=== PATIENT | female | born 1930 | race Caucasian/White ===

== ENCOUNTER 2016-07-29 13:00 | Emergency (ER) | payer MEDICARE, BC ==
--- NOTE | 2016-07-29 13:13 | ERNOTE ---
Dyspnea - Date Date of Service: 07/29/16 - General Time Seen by Provider: 07/29/16 13:11 Source: patient, family - Immun/Allergies/Home Medications Immunizations: IMMUNIZATION HX Immunizations Up to Date Yes History of Influenza Vaccine Yes Hx Pneumococcal Vaccination Yes Allergies/Adverse Reactions: Allergies atorvastatin calcium [From Lipitor] Allergy (Verified 07/29/16 13:11) codeine [Codeine] Allergy (Verified 07/29/16 13:11) estrogens, conjugated [From Premarin] Allergy (Verified 07/29/16 13:11) metformin Allergy (Verified 07/29/16 13:11) nitrofurantoin macrocrystalline [From Macrodantin] Allergy (Verified 07/29/16 13 :11) Penicillins Allergy (Verified 07/29/16 13:11) sulfamethoxazole [From Bactrim] Allergy (Verified 07/29/16 13:11) trimethoprim [From Bactrim] Allergy (Verified 07/29/16 13:11) simvastatin [From Zocor] Adverse Reaction (Verified 07/29/16 13:11) Home Medications: HOME MEDICATIONS ALPRAZolam [Xanax] 0.25 mg PO BID PRN 12/24/15 [Last Taken Unknown] Acetaminophen [Tylenol] 1,000 mg PO Q6H PRN 12/24/15 [Last Taken Unknown] Albuterol Sulfate/Ipratropium [Duoneb 2.5-0.5MG/3ML Soln] 3 ml IH QID PRN [Last Taken Unknown] Cholecalciferol (Vitamin D3) [Vitamin D3] 2,000 unit PO DAILY 12/24/15 [Last Taken Unknown] Clopidogrel Bisulfate [Plavix] 75 mg PO DAILY 12/24/15 [Last Taken Unknown] Escitalopram Oxalate [Lexapro] 10 mg PO DAILY 12/24/15 [Last Taken Unknown] Gabapentin 300 mg PO DAILY 12/24/15 [Last Taken Unknown] Gabapentin [Neurontin] 600 mg PO HS 12/24/15 [Last Taken Unknown] Insulin Glargine,Hum.rec.anlog [Lantus] 28 unit SQ BID 12/24/15 [Last Taken Unknown] Losartan Potassium [Cozaar] 50 mg PO HS 12/24/15 [Last Taken Unknown] Memantine HCl 10 mg PO BID 12/24/15 [Last Taken Unknown] Nitroglycerin [Nitrostat] 0.4 mg SL Q5MIN PRN 12/24/15 [Last Taken Unknown] Pantoprazole Sodium [Protonix] 40 mg PO DAILY 12/24/15 [Last Taken Unknown] Pravastatin Sodium [Pravachol] 40 mg PO DAILY 12/24/15 [Last Taken Unknown] Albuterol Sulfate [Proair Hfa] 2 puff IH QID PRN 07/29/16 [Last Taken Unknown] Cephalexin Monohydrate [Keflex] 500 mg PO Q8H #30 capsule 07/29/16 [Last Taken Unknown] Insulin Aspart [Novolog] 8 units SC DAILY 07/29/16 [Last Taken Unknown] Insulin Aspart [Novolog] 10 units SC BID 07/29/16 [Last Taken Unknown] - History of Present Illness Narrative: C/O OF INCREASED COUGHING FOR A COUPLE OF DAYS. SISTER WONDERS IF SHE HAS UTI BECAUSE SHE HAD ONE ONCE BEFORE THOUGH PT HAS UTI SX'S. SHE WAS REPORTED BY FAMILY TO HAVE A FEVER OF 99 AT HOME THIS MORNING. SHE SAYS SHE HAS HX OF PNEUMONIAS AND TRIED A DOSE OF HER INHALER EARLIER WITH NO HELP. SHE IS NOT ON HOME O2 , HAVE A HOME NEBULIZER OR USE CPAP AT NIGHT. SHE DENIES COPD, ASTHMA, OR SMOKING HISTORY OR HX OF EXPOSURE THOUGH IT LOOKS LIKE SHE HAS BEEN TREATED COPD IN THE PAST. SHE HAS PHX OF CA BUT DENIES ANY CHEST PAIN AND HAS A PACE MAKER BUT SHE AND FAMILY DO NOT KNOW WHY. SHE AND HER LIVE IN [facility] BUT HE IS NOT HERE TODAY. Review of Systems - Review of Systems Constitutional: Present: See HPI EYE: Present: no symptoms reported ENT: Present: no symptoms reported Respiratory: Present: cough Cardiology: Present: no symptoms reported Gastrointestinal/Abdominal: Present: no symptoms reported Genitourinary: Present: no symptoms reported Musculoskeletal: Present: no symptoms reported Skin: Present: no symptoms reported Neurological: Present: no symptoms reported Endocrine: Present: no symptoms reported Hematologic/Lymphatic: Present: no symptoms reported Psych: Present: no symptoms reported - Patient's Past Medical History Patient History - Medical: Anxiety, Diabetes Type 2 Patient History - Cardiac/Respiratory: CHF, CVA/Stroke, Hypertension, Hyperlipidemia, Myocardial Infarction Patient History - Cancer: No Hx of Cancer Patient History - Surgical Procedures: Appendectomy, Cardiac stent, Hysterectomy , Other Patient History - Other: None - Family History Mother Family History - Medical: Family History - Cardiac/Respiratory: CVA/Stroke Father Family History - Medical: , Diabetes Type 2 Family History - Cardiac/Respiratory: Hypertension, Hyperlipidemia, Myocardial Infarction - Social History Living Situations: home Abuse History: No History of abuse Psych History: Hx of Anxiety Alcohol Use: none Drug Use: benzodiazepine - Immunizations Immunizations Up to Date: Yes Hx Pneumococcal Vaccination: Yes History of Influenza Vaccine: Yes Physical Exam - Physical Exam General Appearance: Present: wd/wn, alert, mild distress - ANXIOUS APPEARING. WITH STABLE VSS ON ROOM AIR. Eye Exam: Normal inspection: bilateral Ears, Nose, Throat: Present: normal ENT inspection Neck: Present: normal inspection Respiratory: Present: no respiratory distress, no accessory muscle use, chest nontender, wheezing - MILD EXP . WHEEZES. Cardiovascular/Chest: Present: regular rate, rhythm, no murmur, normal peripheral pulses Gastrointestinal/Abdominal: Present: normal bowel sounds, nontender, soft, no organomegaly Back Exam: Present: normal inspection Extremity Exam: Present: normal inspection, no edema Neurological Exam: Present: alert, oriented Skin Exam: Present: normal color ED Progress - Results and Orders Patient's Lab Results:: I have reviewed the patient's lab results. Results and Orders: WBC = 11.7, ABG WNL WIT PAO2 = 63 ON R.A., LYTES =WNL, CREAT 1.25 WITH GLUC 266. LACTIC ACID = 3.0, D-DIMER = 1.6, WITH NL TROP AND BNP. URINE = 3 = BACT , +NITRATES, SPILLING GLUC, 10-25 RBC'S, CULTURE PEND. - Vital Signs Patient's Vital Signs:: I have reviewed the patient's vital signs. Vital Signs: Vital Signs 07/29/16 13:07 Temperature 36.9 C Pulse Rate 78 Respiratory 14 Rate Blood Pressure 164/88 O2 Sat by Pulse 90 Oximetry - EKG EKG: other - PACER RYTHM, 76 HR, RBBB WITH LAD. - X-Ray X-Ray #1 X-Ray: chest - CMG. RIGHT HILAR NODULAR DENSITY = NEW, D/W DR. LUGO Interpretation: Discd w/ radiologist - CT/Ultrasound CT/Ultrasound Narrative: Patient Patient Name:DEYVI LANG Date: 1930 Sex: F Order Number: [id number] Unique Exam ID: [id number] Exam Requested: ANGIOCHES - CTA Chest * Date Scheduled: Study Priority: Requesting Service: Requesting Physician: Say Michelle Reason for Exam: SOB , ? PNEUMONIA VS PE Radiological Report : Exam Date: 07/29/2016 14:10 Ordering Physician: Say Michelle HISTORY: Shortness of breath, weakness, fever. Abnormal chest x-ray with a nodular opacity overlying the right hilum. TECHNIQUE: Multiple contrast-enhanced axial CT images of the chest were obtained, according to pulmonary angiography protocol. Coronal reconstructed maximal intensity projection images were also submitted for interpretation. COMPARISONS: 06/04/2015. FINDINGS: CTA Chest *: Opacification of the pulmonary arterial branches are adequate. No filling defects are noted to suggest pulmonary embolus. Opacification of the thoracic aorta is suboptimal for angiographic evaluation but no definite focal finding is seen.. Multiple artifacts related to cardiac motion and streak artifact from contrast in the adjacent superior vena cava noted. 4 cm dilation of the ascending thoracic segment, stable. Aortic valvular calcifications also present. Mildly enlarged right hilar lymph nodes are noted, which are new. There is no definite signs of large bulky mediastinal mass. No significant pericardial effusion noted. There is mild to moderate cardiac enlargement. Extensive coronary arterial vascular calcifications noted. Mitral valvular calcifications also present. There is a new 3.5 x 3.5 cm nodular pulmonary opacity in the superior segment of the right lower lobe, seen best on series 6 image 84. There is associated peribronchial subcentimeter nodular opacities and thickening of the lung interstitium around the bronchovascular bundle. The trachea is grossly patent. No pneumothorax or pleural effusions present. Bones are grossly intact. Degenerative changes of the spine noted. Decreased mineralization of bone suggestive of underlying osteopenia or osteoporosis. Anterior chest wall is grossly unremarkable. Axillary regions are also grossly normal. Visualized portions of the abdomen grossly unremarkable. IMPRESSION: 1. No CT evidence for acute pulmonary thromboembolism. 2. Suboptimal opacification of the thoracic aorta for angiographic evaluation without obvious acute findings. 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 3. New 3.5 x 3.5 cm pulmonary opacity in the superior segment of the right lower lobe, with associated right hilar lymph node enlargement, and nodular thickening of the interstitium around the bronchovascular bundle. Differential diagnosis includes infection versus malignancy. Clinical correlation is advised. Short-term follow-up chest CT in 1-[address] evaluation should also be considered. 4. Cardiomegaly. Coronary arterial vascular calcifications noted. Aortic and mitral valvular calcifications. 5. Additional comments and details are as above. Electronically signed by Mali Lugo M.D.. Approved by: Approval Date: 07-29-2016 Approval Time: 03:02 PM THIS REPORT WAS RECEIVED FROM THE [employer] SYSTEM - Progress/Reassessment Chief Complaint: Dyspnea Plan - Plan Plan: D/W DR KOHLI, WILL D/C ON CEFAZOLIN WITH CULTURE PENDING ON URINE. I d/w pt and family about doing f/u of the right hilar opacity noted on cxr and cta chest. Departure Clinical Impression: UTI (urinary tract infection), bacterial - Departure Disposition: Home Follow Up Needed Condition: Fair Instructions: Urinary Tract Infection, Adult, [id number], Urine Culture and Sensitivity Testing Referrals: Shari Kohli MD [Primary Care Provider] - Prescriptions: Cephalexin Monohydrate [Keflex] 500 mg PO Q8H #30 capsule
[2016-07-29 13:28] LABS: Hematocrit 45.2 % (37.0-47.0); Mean Cell Volume 86.4 fl (78-100); Mean Corpuscular Hemoglobin 28.7 pg (27-31); Mean Corpuscular Hgb Conc 33.2 g/dl (32-36); Mean Platelet Volume 10.7 fl (6.0-9.5); Neutrophil # 7.6 K/mm3 (1.3-6.0); Neutrophil % 64.7 % (42-75.0); Platelet Count 312 K/mm3 (150-450); Red Blood Count 5.23 M/mm3 (4.2-5.4); Red Cell Distribution Width 15.5 % (11.5-14.0); White Blood Count 11.7 K/mm3 (4.0-10.5)
--- OUTSIDE RECORDS SUMMARY | 2016-07-29 13:40 | XMS REPORT | Continuity of Care Document ---
:1930 Author Organization [facility] [place] [address] Care Team Providers Name Role Phone Unavailable Primary Care Provider Unavailable Source Comments This disclosure is being made pursuant to the [employer] program and maynot contain all information available regarding this patient.[facility] Active Allergies and Adverse Reactions Not on File Current Medications Be aware that medications may not be up to date as of this document. Alwaysverify current medications with the patient. Not on file Active Problems Not on file Social History Tobacco Use Types Packs/Day Years Used Date Never Assessed Plan of Care Health Maintenance Due Date Last Done Comments Retired-Pertussis Vaccine Adult 1950 Retired-Tetanus Vaccine Adult 1949 Well Adult Visit 1981 Zoster Vaccine 60+ 1991 Bone Density 01/11/1996 Retired-Pneumococcal 23 Vaccine-65+ yo 01/11/1996 Retired-INFLUENZA VACCINE 11/19/2014 Results from Last 3 Months Not on file
--- OUTSIDE RECORDS SUMMARY | 2016-07-29 13:41 | XMS REPORT | Continuity of Care Document ---
:1930 Author Organization [facility] ([facility]) Address [address] [place] [address] Phone [phone] Care Team Providers Name Role Phone MavericktelmaShari Primary Care Provider [phone] Source Comments This disclosure is being made pursuant to the Care Everywhere program, applicable federal and state laws, and may not contain all informaitonavailable regarding this patient.[facility] ([facility]) Active Allergies and Adverse Reactions Allergen Noted Date Severity Reactions Comments Codeine 11/12/2009 OTHER Confusion Conjugated Estrogens 11/12/2009 Rash Cotrim Double-Strength 10/09/2010 Unknown Nitrofuran Analogues Nausea & Vomiting Penicillins Urticaria (Hives) Current Medications Prescription Sig. Disp. Refills Start Date End Date Status insulin glargine inject 60 Units Active (LANTUS) 100 unit/mL subcutaneously every injection evening with dinner. insulin lispro inject 10 Units Active (HUMALOG) 100 subcutaneously 3 unit/mL injection times daily before meals. Sliding scale gabapentin 300 mg Take 300 mg by mouth Active tablet 3 times daily. 300mg in the am, 600mg at bedtime escitalopram oxalate take 1 tablet by 02/20/2013 Active (LEXAPRO) 10 mg oral route every tablet day nitroglycerin 0.[address] 1 tablet 12/06/2012 Active SL tablet (0.4MG) by sublingual route at the 1st sign of attack; may repeat every 5 min until relief; if pain persists after 3 tablets in 15 min, prompt medical attention is recommended pantoprazole 40 mg Take 40 mg by mouth Active EC tablet daily pravastatin 20 mg Take 40 mg by mouth 04/04/2015 Active tablet every evening. clopidogrel (PLAVIX) Take 1 tablet (75 mg 90 tablet 3 05/27/2015 Active 75 mg tablet total) by mouth daily. losartan 50 mg Take 50 mg by mouth Active tablet daily. HYDROcodone-acetamin Take 1 tablet by Active ophen 5-325 mg per mouth every 4 hours tablet as needed. IPRATROPIUM BROMIDE Active INH oxymetazoline 0.05% Use 2 Sprays into Active nasal spray both nostrils 2 times daily. albuterol 90 Use 2 Puffs by Active mcg/Actuation inhalation every 6 inhaler hours as needed. CALCIUM Active CARBONATE/VITAMIN D3 (VITAMIN D-3 PO) ALPRAZolam 0.25 mg Take 0.25 mg by Active tablet mouth at bedtime as needed. Active Problems Problem Noted Date CVA (cerebral vascular accident), 05/201510/07/2015 Carotid artery disease 10/12/2014 Overview: Formatting of this note may be different from the original. VASCULAR: Carotid Duplex (The Doppler flow velocities within the right internal carotid artery are elevated, consistent with a greater than 70% stenosis The Doppler flow velocities within the left internal carotid artery are within normal limits ) - 01/05/2011 Arch & 4 Vessel (40% Ostial Right Internal Carotid) - 01/26/2011 Carotid Duplex (Vertebral: Bilateral Antegrade Flow, VIOLETTE 184/40 (3.2) LICA 69/ 20 (.7)) - 08/17/2011 Carotid CTA (VIOLETTE read as 71%.) - 02/18/2012 Duplex (Vertebral: Bilateral Antegrade Flow, Right ICA/CCA ratio 1.0 Left ICA/ CCA ratio 0.8) - 12/22/2012 Carotid Duplex (The right common carotid artery is tortuous The Doppler flow velocities within the right internal carotid artery are elevated, consistent with a 50-69% stenosis. The Doppler flow velocities within the left internal carotid artery are within normal limits, less than 50% stenosis. ) - 08/22/2013 Aortic stenosis 10/12/2014 Overview: Formatting of this note may be different from the original. ECHO/MUGA: Echo (Normal EF, Aortic Sclerosis) - 05/22/2009 Echo (There is mild to moderate concentric left ventricular hypertrophy. Left ventricular systolic function is normal. There is mild mitral regurgitation. The peak aortic valve gradient is 23 mmHg. Mild valvular aortic stenosis. Mild aortic regurgitation. ) - 01/05/2011 EchoLV Ejection Fraction=61% (based on Biplane Method of Discs). Mild left ventricular hypertrophy. Trace mitral regurgitation Aortic valve peak instantaneous gradient=33 mmHg. Aortic valve mean gradient=22 mmHg. A normal IVC diameter which collapses greater than 50% would support an normal RA pressure of 3 mmHg (range 0-5mmHg). 05/02/2015 Sinus node dysfunction 08/22/2013 Cardiac pacemaker in situ, [employer] 04/21/2011 Patent foramen ovale 10/14/2010 GERD (gastroesophageal reflux disease) 10/14/2010 Unspecified urinary incontinence 10/14/2010 Memory loss 11/12/2009 Diabetes mellitus 11/12/2009 CAD (coronary artery disease) 11/12/2009 Overview: Formatting of this note may be different from the original. CAD: 1 Stent: LAD - 03/1997 TIA (transient ischemic attack) 11/12/2009 HLD (hyperlipidemia) 11/12/2009 Myocardial infarction, old HTN (hypertension) Social History Tobacco Use Types Packs/Day Years Used Date Never Smoker Smokeless Tobacco: Never Used Alcohol Use Drinks/Week oz/Week Comments No Last Filed Vital Signs Vital Sign Reading Time Taken Blood Pressure 118/72 10/07/2015 11:13 AM CDT Pulse 86 10/07/2015 11:13 AM CDT Temperature 36.9 C (98.4 F) 08/11/2011 1:00 PM CDT Respiratory Rate 20 08/11/2011 1:00 PM CDT Height 1.575 m (5' 2") 10/07/2015 11:13 AM CDT Weight 80.196 kg (176 lb 12.8 oz) 10/07/2015 11:13 AM CDT Body Mass Index 32.33 10/07/2015 11:13 AM CDT Oxygen Saturation 96% 08/11/2011 1:00 PM CDT Plan of Care Date Type Specialty Providers Description 10/05/2016 Appointment Heart and Vascular Tacos Angel MD Chief Comp: Patient [address] [address] Visit [phone] (Fax) Health Maintenance Due Date Last Done Comments Hepatitis B Vaccine (1 of 3 - Primary Series) 1930 Tdap Vaccine 1941 DIABETIC: Cholesterol 1948 Diabetic: Hdl 1948 DIABETIC: Hemoglobin A1C 1948 Diabetic: Ldl 1948 DIABETIC: Microalbumin 1948 DIABETIC: Triglycerides 1948 Td Vaccine 1948 Colonoscopy 01/09/1981 Zoster Vaccine 1991 Osteoporosis Screening (DXA Bone Density) 01/11/1996 Pneumococcal Vaccine (1 of 2 - PCV13) 01/11/1996 DIABETIC: Foot Exam 09/01/2010 DIABETIC: Retinal Eye Exam 09/01/2010 Influenza Vaccine: Seasonal (#1) 10/20/2015 Results from Last 3 Months Not on file
[2016-07-29 13:42] LABS: Total Cells Counted 100
[2016-07-29 13:46] LABS: Troponin I Less than 0.017 ng/ml (0.00-0.10)
[2016-07-29] MEDS ORDERED: ALBUTEROL SULFATE/IPRATROPIUM 3 ML NEBU IH ONE (13:47)
[2016-07-29 13:48] LABS: ALT 16 U/L (19-67); AST 13 U/L (0-48); Albumin * 2.9 gm/dl (3.4-5.0); Alkaline Phosphatase * 104 U/L (50-170); Anion Gap 13.8 mmol/L (6.8-13.8); BNP * 532 pg/mL (5-550); Bilirubin, Total 0.6 mg/dL (0.0-1.1); Blood Urea Nitrogen 10 mg/dL (3-23); Ca. Corrected For Albumin 9.4 mg/dL (8.4-10.2); Calcium * 8.8 mg/dL (7.9-10.9); Carbon Dioxide 27.6 mmol/L (24-32.6); Chloride 102 mmol/L (97-106); Glucose * 266 mg/dL (70-110); Potassium 3.4 mmol/L (3.4-4.6); Sodium 140 mmol/L (132-142); Total Protein 6.7 gm/dL (6.2-8.2)
[2016-07-29] MEDS: ALBUTEROL SULFATE/IPRATROPIUM 3 ML NEBU IH ONE (13:59)
[2016-07-29 14:09] LABS: Atypical (Reactive) Lymph 3 % (0-2); Band 2 % (0-2.0); Eosinophil 6 % (0-3); Lymphocyte 15 % (20-51); Monocyte 14 % (0-9); Neutrophil 60 % (42-75)
[2016-07-29 14:10] LABS: Platelet Estimate Normal (NORMAL); RBC Morphology Normal (NORMAL)
[2016-07-29 14:53] LABS: Urine Bilirubin Negative (NEGATIVE); Urine Blood 250 /ul (NEGATIVE); Urine Ketone Negative (NEGATIVE); Urine Protein Negative (NEGATIVE); Urine Specific Gravity 1.015 SP.GR. (1.005-1.010); Urine Urobilinogen Normal (NORMAL)
[2016-07-29 15:02] LABS: Urine Appearance Slightly Cloudy; Urine Bacteria 3+; Urine Color Yellow; Urine Nitrite Positive (NEGATIVE); Urine WBC 0-5 /hpf (0-5)
[2016-07-29 16:05] VITALS: BP 154/79
== END 2016-07-29 15:52 | disposition home or self-care (01) ==
LOC: ER 13:00
DX: N39.0 Urinary tract infection, site not specified (principal); B96.89 Other specified bacterial agents as the cause of diseases classified elsewhere; E78.5 Hyperlipidemia, unspecified; I10 Essential (primary) hypertension; I50.9 Heart failure, unspecified; Z86.73 Personal history of transient ischemic attack (TIA), and cerebral infarction without residual deficits; E11.9 Type 2 diabetes mellitus without complications

== ENCOUNTER 2016-07-30 07:30 | Inpatient (IN) | payer MEDICARE, BC ==
--- NOTE | 2016-07-30 07:46 | ERNOTE ---
Dyspnea - General Presenting Symptoms: shortness of breath Time Seen by Provider: 07/30/16 07:35 Source: patient Exam Limitations: no limitations - Immun/Allergies/Home Medications Immunizations: IMMUNIZATION HX Immunizations Up to Date Yes History of Influenza Vaccine Yes Hx Pneumococcal Vaccination Yes Allergies/Adverse Reactions: Allergies atorvastatin calcium [From Lipitor] Allergy (Verified 07/29/16 13:11) codeine [Codeine] Allergy (Verified 07/29/16 13:11) estrogens, conjugated [From Premarin] Allergy (Verified 07/29/16 13:11) metformin Allergy (Verified 07/29/16 13:11) nitrofurantoin macrocrystalline [From Macrodantin] Allergy (Verified 07/29/16 13 :11) Penicillins Allergy (Verified 07/29/16 13:11) sulfamethoxazole [From Bactrim] Allergy (Verified 07/29/16 13:11) trimethoprim [From Bactrim] Allergy (Verified 07/29/16 13:11) simvastatin [From Zocor] Adverse Reaction (Verified 07/29/16 13:11) Home Medications: HOME MEDICATIONS ALPRAZolam [Xanax] 0.25 mg PO BID PRN 12/24/15 [Last Taken Unknown] Acetaminophen [Tylenol] 1,000 mg PO Q6H PRN 12/24/15 [Last Taken Unknown] Albuterol Sulfate/Ipratropium [Duoneb 2.5-0.5MG/3ML Soln] 3 ml IH QID PRN [Last Taken Unknown] Cholecalciferol (Vitamin D3) [Vitamin D3] 2,000 unit PO DAILY 12/24/15 [Last Taken Unknown] Clopidogrel Bisulfate [Plavix] 75 mg PO DAILY 12/24/15 [Last Taken Unknown] Escitalopram Oxalate [Lexapro] 10 mg PO DAILY 12/24/15 [Last Taken Unknown] Gabapentin 300 mg PO DAILY 12/24/15 [Last Taken Unknown] Gabapentin [Neurontin] 600 mg PO HS 12/24/15 [Last Taken Unknown] Insulin Glargine,Hum.rec.anlog [Lantus] 28 unit SQ BID 12/24/15 [Last Taken Unknown] Losartan Potassium [Cozaar] 50 mg PO HS 12/24/15 [Last Taken Unknown] Memantine HCl 10 mg PO BID 12/24/15 [Last Taken Unknown] Nitroglycerin [Nitrostat] 0.4 mg SL Q5MIN PRN 12/24/15 [Last Taken Unknown] Pantoprazole Sodium [Protonix] 40 mg PO DAILY 12/24/15 [Last Taken Unknown] Pravastatin Sodium [Pravachol] 40 mg PO DAILY 12/24/15 [Last Taken Unknown] Albuterol Sulfate [Proair Hfa] 2 puff IH QID PRN 07/29/16 [Last Taken Unknown] Cephalexin Monohydrate [Keflex] 500 mg PO Q8H #30 capsule 07/29/16 [Last Taken Unknown] Insulin Aspart [Novolog] 8 units SC DAILY 07/29/16 [Last Taken Unknown] Insulin Aspart [Novolog] 10 units SC BID 07/29/16 [Last Taken Unknown] - History of Present Illness Narrative: pt started feeling short of breath this am. Last night she was "fine". She denies COPD or emphysema. was seen yesterday in this ED for shortness of breath and was diagnosed with right lower lobe mass and UTI. Treated and sent home. This am felt short of breath and 02 was 84 on room air, after two Albuterol nebs by EMS it was 94 % on room air. [place] better, still wheezing. Review of Systems - Review of Systems Constitutional: Present: no symptoms reported EYE: Present: no symptoms reported ENT: Present: no symptoms reported Respiratory: Present: See HPI, other - shortness of breath and cough Cardiology: Present: no symptoms reported Gastrointestinal/Abdominal: Present: no symptoms reported Genitourinary: Present: no symptoms reported Musculoskeletal: Present: no symptoms reported Skin: Present: no symptoms reported - Patient's Past Medical History Patient History - Medical: Anxiety, Diabetes Type 2 Patient History - Cardiac/Respiratory: CHF, CVA/Stroke, Hypertension, Hyperlipidemia, Myocardial Infarction Patient History - Cancer: No Hx of Cancer Patient History - Surgical Procedures: Appendectomy, Cardiac stent, Hysterectomy , Other Patient History - Other: None LMP (females 10-50): Menopausal - Family History Mother Family History - Medical: Family History - Cardiac/Respiratory: CVA/Stroke Father Family History - Medical: , Diabetes Type 2 Family History - Cardiac/Respiratory: Hypertension, Hyperlipidemia, Myocardial Infarction - Social History Living Situations: assisted living Abuse History: No History of abuse Psych History: Hx of Anxiety Smoking Status: Never smoker Alcohol Use: none Drug Use: benzodiazepine - Immunizations Immunizations Up to Date: Yes Hx Pneumococcal Vaccination: Yes History of Influenza Vaccine: Yes Physical Exam - Physical Exam General Appearance: Present: wd/wn, alert, mild distress - due to shortness of breath Ears, Nose, Throat: Present: normal ENT inspection Neck: Present: normal inspection, nontender, supple Respiratory: Present: respiratory distress - mild, decreased breath sounds, wheezing, other - pt has audible wheezing and mild respiratory distress with Resp rate of 25 /min Gastrointestinal/Abdominal: Present: normal bowel sounds Extremity Exam: Present: normal inspection Neurological Exam: Present: alert, oriented, normal mood/affect, no motor/ sensory deficits ED Progress - Date and Time Seen: Date and Time: 07/30/16 08:08 I have reviewed yesterday's chest Xray and Ct scan and WBC is 12.9. Will call Dr. Kohli to admit\\ - Results and Orders Patient's Lab Results:: I have reviewed the patient's lab results. - Vital Signs Patient's Vital Signs:: I have reviewed the patient's vital signs. Vital Signs: Vital Signs 07/30/16 07:33 Temperature 36.8 C Pulse Rate 72 Respiratory 26 H Rate Blood Pressure 157/72 O2 Sat by Pulse 92 Oximetry - Progress/Reassessment Chief Complaint: Dyspnea Departure Clinical Impression: Status asthmaticus Qualifiers: Asthma severity: unspecified severity Qualified Code(s): J45.902 - Unspecified asthma with status asthmaticus - Departure Disposition: [facility] Condition: Stable Referrals: Shari Kohli MD [Primary Care Provider] -
--- OUTSIDE RECORDS SUMMARY | 2016-07-30 07:46 | XMS REPORT | Continuity of Care Document ---
:1930 Author Organization [facility] [place] [address] Care Team Providers Name Role Phone Unavailable Primary Care Provider Unavailable Source Comments This disclosure is being made pursuant to the [employer] program and maynot contain all information available regarding this patient.[facility] Active Allergies and Adverse Reactions Not on [...]
--- OUTSIDE RECORDS SUMMARY | 2016-07-30 07:46 | XMS REPORT | Continuity of Care Document ---
:1930 Author Organization [facility] ([facility]) Address [address] [place] [address] Phone [phone] Care Team Providers Name Role Phone MavericktelmaShari Primary Care Provider [phone] Source Comments This disclosure is being made pursuant to the Care Everywhere program, applicable federal and state laws, and may not contain all informaitonavailable regarding this patient.[facility] ([facility]) Active Allergies and Adverse Reactions Allergen Noted [...] Tacos Angel MD Chief Comp: Patient [address] [place] [address] Visit [phone] (Fax) Health Maintenance Due Date Last Done [...]
[2016-07-30] MEDS ORDERED: METHYLPREDNISOLONE SOD SUCC/PF 40 MG/ML VIAL IV ONE (07:53)
[2016-07-30] MEDS ORDERED: METHYLPREDNISOLONE SOD SUCC/PF 125 MG/2 ML VIAL ONE (07:53)
[2016-07-30] MEDS ORDERED: ALBUTEROL SULFATE/IPRATROPIUM 3 ML NEBU IH ONE ×2 (07:53)
[2016-07-30 07:55] LABS: Hematocrit 45.9 % (37.0-47.0); Mean Cell Volume 87.6 fl (78-100); Mean Corpuscular Hemoglobin 28.6 pg (27-31); Mean Corpuscular Hgb Conc 32.7 g/dl (32-36); Mean Platelet Volume 10.6 fl (6.0-9.5); Platelet Count 318 K/mm3 (150-450); Red Blood Count 5.24 M/mm3 (4.2-5.4); Red Cell Distribution Width 15.9 % (11.5-14.0); White Blood Count 12.9 K/mm3 (4.0-10.5)
[2016-07-30 07:58] LABS: Total Cells Counted 100
[2016-07-30 08:08] LABS: Albumin * 2.9 gm/dl (3.4-5.0); Anion Gap 13.1 mmol/L (6.8-13.8); Atypical (Reactive) Lymph 5 % (0-2); BUN/Creatinine Ratio 8.7 (9.0-21.6); Band 3 % (0-2.0); Bilirubin, Total 0.8 mg/dL (0.0-1.1); Ca. Corrected For Albumin 9.4 mg/dL (8.4-10.2); Calcium * 8.8 mg/dL (7.9-10.9); Carbon Dioxide 29.2 mmol/L (24-32.6); Eosinophil 5 % (0-3); Lymphocyte 15 % (20-51); Monocyte 10 % (0-9); Neutrophil 62 % (42-75); Potassium 3.3 mmol/L (3.4-4.6); Total Protein 6.8 gm/dL (6.2-8.2)
[2016-07-30 08:09] LABS: Platelet Estimate Normal (NORMAL); RBC Morphology Normal (NORMAL)
--- OUTSIDE RECORDS SUMMARY | 2016-07-30 08:21 | XMS REPORT | Continuity of Care Document ---
:1930 Author Organization [facility] ([facility]) Address [address] [place] [address] Phone [phone] Care Team Providers Name Role Phone MavericktelmaShari Primary Care Provider [phone] Source Comments This disclosure is being made pursuant to the Care Everywhere program, applicable federal and state laws, and may not contain all informaitonavailable regarding this patient.[facility] ([facility]) Active Allergies and Adverse Reactions Allergen Noted [...] Patient [address] [place] [address] Visit [phone] (Fax) Health Maintenance Due Date Last Done [...]
--- OUTSIDE RECORDS SUMMARY | 2016-07-30 08:21 | XMS REPORT | Continuity of Care Document ---
:1930 Author Organization [facility] [place] [address] Care Team Providers Name Role Phone Unavailable Primary Care Provider Unavailable Source Comments This disclosure is being made pursuant to the OrderUp program and maynot contain all information available regarding this patient.[facility] Active Allergies and Adverse Reactions Not on [...]
[2016-07-30] MEDS ORDERED: NORMAL SALINE 1,000 ML IV ONE (08:45)
--- NOTE | 2016-07-30 09:39 | HP ---
Chief Complaint - Chief Complaint Date of Service: 07/30/16 Time of Service: 09:39 Chief Complaint: sob and difficulty in breathing for the last 2-3 days. History of Present Illness: Shobha Gutiérrez, is an 86-year-old WM with a H/O HTN, DM, CAD with PTCA to CX , LAD [1996] and stent to LAD[1997], HLD, anxiety and depression, GERD, OA, mild dementia who came into the ER on 07/29/2016 because of SOB, wheezing and increasing confusion. CXR showed RT perihilar opacity / lymphadenopathy / increased vascularity. This was followed by chest CT per PE protocol - 3.5 cm x 3.5 cm nodular pulmonary opacity in superior segment in RIGHT LOWER LOBE. Pt d/cody on levofloxin 500 mg PO daily and breathing treatmentson 07/29/16; became worse and admitted on 03/06. Also had a UTI. - Patient's Past Medical History Additional info: PAST MEDICAL HISTORY: [id number]; urge [id number]; [id number]; HLD -1994; [id number]; [id number]; anxiety and [id number]; CADPTCA to CX and LAD[1996], stent to LAD[1997]; [id number]; neuropathy-1999; carotid artery disease RT 70%, LAD 60%[ asymptomatic]; memory loss. 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 LMP (females 10-50): Menopausal - Family History Mother Family History - Medical: Family History - Cardiac/Respiratory: CVA/Stroke Father Family History - Medical: , Diabetes Type 2 Family History - Cardiac/Respiratory: Hypertension, Hyperlipidemia, Myocardial Infarction - Social History Living Situations: assisted living Abuse History: No History of abuse Psych History: Hx of Anxiety Smoking Status: Never smoker Alcohol Use: none Drug Use: benzodiazepine - Immunizations Immunizations Up to Date: Yes Hx Pneumococcal Vaccination: Yes History of Influenza Vaccine: Yes Allergies/Adverse Reactions: Allergies Allergy/AdvReac Type Severity Reaction Status Date / Time atorvastatin calcium Allergy Verified 07/30/16 13:17 [From Lipitor] codeine [Codeine] Allergy Verified 07/30/16 13:17 estrogens, conjugated Allergy Verified 07/30/16 13:17 [From Premarin] metformin Allergy Verified 07/30/16 13:17 nitrofurantoin Allergy Verified 07/30/16 13:17 macrocrystalline [From Macrodantin] Penicillins Allergy Verified 07/30/16 13:17 sulfamethoxazole Allergy Verified 07/30/16 13:17 [From Bactrim] trimethoprim [From Bactrim] Allergy Verified 07/30/16 13:17 simvastatin [From Zocor] AdvReac Verified 07/30/16 13:17 Home Medications: HOME MEDICATIONS ALPRAZolam [Xanax] 0.25 mg PO BID PRN 12/24/15 [Last Taken Unknown] Acetaminophen [Tylenol] 1,000 mg PO Q6H PRN 12/24/15 [Last Taken Unknown] Albuterol Sulfate/Ipratropium [Duoneb 2.5-0.5MG/3ML Soln] 3 ml IH QID PRN [Last Taken Unknown] Cholecalciferol (Vitamin D3) [Vitamin D3] 2,000 unit PO DAILY 12/24/15 [Last Taken Unknown] Clopidogrel Bisulfate [Plavix] 75 mg PO DAILY 12/24/15 [Last Taken Unknown] Escitalopram Oxalate [Lexapro] 10 mg PO DAILY 12/24/15 [Last Taken Unknown] Gabapentin 300 mg PO DAILY 12/24/15 [Last Taken Unknown] Gabapentin [Neurontin] 600 mg PO HS 12/24/15 [Last Taken Unknown] Insulin Glargine,Hum.rec.anlog [Lantus] 28 unit SQ BID 12/24/15 [Last Taken Unknown] Losartan Potassium [Cozaar] 50 mg PO HS 12/24/15 [Last Taken Unknown] Memantine HCl 10 mg PO BID 12/24/15 [Last Taken Unknown] Nitroglycerin [Nitrostat] 0.4 mg SL Q5MIN PRN 12/24/15 [Last Taken Unknown] Pravastatin Sodium [Pravachol] 40 mg PO DAILY 12/24/15 [Last Taken Unknown] Albuterol Sulfate [Proair Hfa] 2 puff IH QID PRN 07/29/16 [Last Taken Unknown] Azithromycin [Zithromax] 500 mg PO DAILY #2 tab 08/09/16 [Last Taken Unknown] Insulin Lispro [Humalog] 0 units SC ACINS vial 08/09/16 [Last Taken Unknown] Saccharomyces Boulardii [Florastor] 250 mg PO BID capsule 08/09/16 [Last Taken Unknown] predniSONE [Prednisone] 20 mg PO DAILY #2 tablet 08/09/16 [Last Taken Unknown] Exam - Exam Vital Signs: Vital Signs - Last Taken Temp 36.8 C 07/30/16 07:33 Pulse 86 07/30/16 08:37 Resp 13 07/30/16 08:37 BP 195/57 07/30/16 08:37 Pulse Ox 93 07/30/16 08:37 Constitutional: Present: Alert, Elderly, Obese - looks uncomfortable ENT Exam: Present: hearing grossly normal, moist mucous membranes Eye Exam: bilateral eye: PERRL, EOMI Neck: Present: normal inspection, trachea midline Respiratory: Absent: no accessory muscle use - bilateral wheezing in both lung yee Cardiovascular/Chest: Present: regular rate, rhythm, systolic murmur. Absent: tachycardia Peripheral Pulses: carotid (R): 2+, carotid (L): 2+ Abdomen: Present: Normal bowel sounds, soft, nontender, obese Skin Exam: Present: warm/dry, pallor Neurologic: Present: alert, oriented x 3 Appearance: Present: appropriate appearance, appropriate insight Diagnostic Studies: Laboratory Tests 07/29/16 13:20 WBC 11.7 H Hgb 15.0 Hct 45.2 Plt Count 312 Band Neuts % (Manual) 2 07/29/16 13:20 Plasma Sodium 143 H Potassium 3.4 Chloride 102 Carbon Dioxide 27.6 BUN 10 Creatinine 1.25 Est GFR (Non-Af Amer) 43 L Random Glucose 266 H Calcium Adj for Albumin 9.4 Total Bilirubin 0.6 AST 13 ALT 16 L Alkaline Phosphatase 104 B-Natriuretic Peptide 532 Total Protein 6.7 Albumin 2.9 L 07/29/16 14:39 Urine Blood 250 H Urine Nitrate Positive H Urine WBC 0-5 Urine Bacteria 3+ H Urine Culture Comments Culture to follow CXR: 07/29/2016 AP view 1311 hrs. Mild to moderate cardiomegaly. Ovoid density projecting over the right hilum measuring 3 x 3.4 cm. D/D: Right perihilar pulmonary nodular opacity /RT hilar lymphadenopathy/vascular engorgement CT angiogram: 07/29/2016: New 3.53.5 cm pulmonary opacity in the superior segment of the right lower lobe , with associated RT hilar lymph node enlargement, nodular thickening of the interstitium around the bronchovascular bundle. Differential diagnoses includes infection versus malignancy. Clinical correlation is advised. Short- term follow-up CT in 1-3 months recommended. PET/CT evaluation should be considered. Cardiomegaly. Coronary arterial calcifications noted. Aortic and mitral valvular calcifications Assessment/Plan - Narrative Narrative: 1. pulmonary opacity in superior segment RT upper lobe: Emperically being treated as pneumonia with levofloxin 500 mg IV daily, resp Rx with duoneb and pulmocort. will try observation for 24 hrs, may require inpatient if she does not improve. D/D includes malignancy. 2. Bronchospasm: Rx with budenoside; may require solumedrol IV if no improvement. 3 . T2DM: Continue Lantus 28 units with sliding scale. 4. UTI. On cephalexin based on prior cultures. 5. Chronic medical problems: Hypertension, coronary artery disease PTCA to RCA, PTCA and stent to LAD, dementia, GERD, osteoarthritis which are chronic and stable.
[2016-07-30] MEDS: ALBUTEROL SULFATE/IPRATROPIUM 3 ML NEBU IH SCH ×3 (10:27→18:25)
[2016-07-30] MEDS: BUDESONIDE 0.5 MG/2 ML VIAL.NEB IH SCH ×2 (10:28→18:25)
[2016-07-30] MEDS: ESCITALOPRAM OXALATE 10 MG TAB PO SCH (10:47)
[2016-07-30] MEDS: CEPHALEXIN MONOHYDRATE 500 MG CAPSULE PO SCH ×2 (10:47→16:52)
[2016-07-30] MEDS: CHOLECALCIFEROL 1,000 UNIT CAPSULE PO SCH (10:51)
[2016-07-30] MEDS: LEVOFLOXACIN/D5W 500 MG/100 ML BAG IV SCH (10:51)
[2016-07-30] MEDS: Lytes/Yerba Santa 240 APPL BTL MM SCH ×4 (10:52→20:54)
[2016-07-30] MEDS: NORMAL SALINE 1,000 ML IV PRN (10:54)
[2016-07-30] MEDS: INSULIN GLARGINE,HUM.REC.ANLOG 100 UNITS/ML VIAL SC SCH ×2 (10:56→20:49)
[2016-07-30] MEDS: ALPRAZolam 0.25 MG TABLET PO PRN (20:51)
[2016-07-30] MEDS: MEMANTINE HCL 10 MG TABLET PO SCH (20:52)
[2016-07-30] MEDS: LOSARTAN POTASSIUM 50 MG TABLET PO SCH (20:52)
[2016-07-30] MEDS: GABAPENTIN 600 MG TABLET PO SCH (20:53)
[2016-07-31] MEDS: ALBUTEROL SULFATE/IPRATROPIUM 3 ML NEBU IH SCH ×7 (00:25→18:10)
[2016-07-31] MEDS: CEPHALEXIN MONOHYDRATE 500 MG CAPSULE PO SCH ×2 (01:21→08:58)
[2016-07-31] MEDS: ACETAMINOPHEN 500 MG TABLET PO PRN ×2 (01:23→21:50)
[2016-07-31] MEDS: Lytes/Yerba Santa 240 APPL BTL MM SCH ×6 (01:24→21:51)
[2016-07-31] MEDS: NORMAL SALINE 1,000 ML IV PRN (02:07)
[2016-07-31] MEDS: PANTOPRAZOLE SODIUM 40 MG TABLET.EC PO SCH (07:18)
[2016-07-31] MEDS: CHOLECALCIFEROL 1,000 UNIT CAPSULE PO SCH (08:58)
[2016-07-31] MEDS: LEVOFLOXACIN/D5W 500 MG/100 ML BAG IV SCH (08:59)
[2016-07-31] MEDS: GABAPENTIN 300 MG CAPSULE PO SCH (08:59)
[2016-07-31] MEDS: ESCITALOPRAM OXALATE 10 MG TAB PO SCH (08:59)
[2016-07-31] MEDS: CLOPIDOGREL BISULFATE 75 MG TABLET PO SCH (08:59)
[2016-07-31] MEDS: MEMANTINE HCL 10 MG TABLET PO SCH ×2 (08:59→21:52)
[2016-07-31] MEDS: INSULIN GLARGINE,HUM.REC.ANLOG 100 UNITS/ML VIAL SC SCH ×2 (09:00→21:56)
[2016-07-31] MEDS: BUDESONIDE 0.5 MG/2 ML VIAL.NEB IH SCH ×3 (10:00→18:11)
[2016-07-31] MEDS: METHYLPREDNISOLONE SOD SUCC 60 MG in WATER FOR INJ.,BACTERIOSTATIC 0 ML IV SCH ×3 (11:58→23:06)
[2016-07-31] MEDS: ENOXAPARIN SODIUM 40 MG/0.4 ML SYRG SC SCH (15:36)
[2016-07-31] MEDS: ALBUTEROL SULFATE 2.5 MG/3 ML VIAL.NEB IH SCH ×2 (15:40→21:47)
[2016-07-31] MEDS: ALPRAZolam 0.25 MG TABLET PO PRN (16:05)
--- NOTE | 2016-07-31 19:05 | PN ---
Subjective - Date and Time Seen Date: 07/31/16 Time: 11:00 Objective Objective Narrative: Patient does not feel any better- she has audible wheezing heard without the aid of stethoscope and difficulty in breathing which did not improve with DuoNeb , Pulmicort and Levaquin IV 1 day. - Review of Systems Respiratory: Reports: Shortness of Breath, Wheezing Cardiac: Denies: Chest Pain, Edema, Palpitations Abdominal: Denies: Nausea, Vomiting - Vitals Vitals: Vital Signs 07/31/16 10:31 Temperature 36.4 C L Pulse Rate 75 Resp. Rate 18 Blood Pressure 150/70 O2 Sat 96% RA - Exam Constitutional: Present: Elderly, Obese - in NAD ENT Exam: Present: hearing grossly normal, moist mucous membranes Respiratory: Present: wheezing - bilaterally w/o rales. Absent: no accessory muscle use Cardiovascular/Chest: Present: regular rate, rhythm, systolic murmur - at LSB Abdomen: Present: Normal bowel sounds, soft, nontender, obese Extremity: Present: normal range of motion, non-tender Skin Exam: Present: normal color, warm/dry Eye contact: Present: cooperative, good eye contact Assessment/Plan Plan Narrative: 1. pulmonary opacity in superior segment RT upper lobe: Emperically being treated as pneumonia with levofloxin 500 mg IV daily - day #2 D/D possible malignancy; discussed with family no further workup. Patient being admitted from observation to inpatient today as she is no better. 2. Bronchospasm: Start solumedrol 60 mg IV every 6 hours. Increase sliding scale. Increase budenoside from 0.5 mg Q12H to Q8H. DuoNeb Q6 hours alternating with albuterol every 6 hours. 3 . T2DM: Continue Lantus 28 units with sliding scale. 4. UTI. UCS growing Escherichia coli sensitive to levofloxacin. D/C cephalexin. 5. Chronic medical problems: Hypertension, coronary artery disease PTCA to RCA, PTCA and stent to LAD, dementia, GERD, osteoarthritis which are chronic and stable.
[2016-07-31] MEDS: GABAPENTIN 600 MG TABLET PO SCH (21:52)
[2016-07-31] MEDS: LOSARTAN POTASSIUM 50 MG TABLET PO SCH (21:53)
[2016-07-31] MEDS: SACCHAROMYCES BOULARDII 250 MG CAPSULE PO SCH (21:56)
[2016-08-01] MEDS: ALBUTEROL SULFATE/IPRATROPIUM 3 ML NEBU IH SCH ×4 (00:15→18:11)
[2016-08-01] MEDS: Lytes/Yerba Santa 240 APPL BTL MM SCH ×6 (02:08→21:09)
[2016-08-01] MEDS: ALBUTEROL SULFATE 2.5 MG/3 ML VIAL.NEB IH SCH ×4 (04:37→21:24)
[2016-08-01] MEDS: METHYLPREDNISOLONE SOD SUCC 60 MG in WATER FOR INJ.,BACTERIOSTATIC 0 ML IV SCH ×4 (04:50→22:23)
[2016-08-01] MEDS: BUDESONIDE 0.5 MG/2 ML VIAL.NEB IH SCH ×3 (06:09→18:12)
[2016-08-01] MEDS: INSULIN LISPRO 100 UNITS/ML VIAL SC SCH ×3 (07:37→17:29)
[2016-08-01] MEDS: PANTOPRAZOLE SODIUM 40 MG in NORMAL SALINE 100 ML IV SCH (07:41)
[2016-08-01] MEDS: PANTOPRAZOLE SODIUM 40 MG TABLET.EC PO SCH (07:41)
[2016-08-01] MEDS: LEVOFLOXACIN/D5W 500 MG/100 ML BAG IV SCH (10:06)
[2016-08-01] MEDS: CHOLECALCIFEROL 1,000 UNIT CAPSULE PO SCH (10:07)
[2016-08-01] MEDS: ESCITALOPRAM OXALATE 10 MG TAB PO SCH (10:07)
[2016-08-01] MEDS: SACCHAROMYCES BOULARDII 250 MG CAPSULE PO SCH ×2 (10:07→21:08)
[2016-08-01] MEDS: MEMANTINE HCL 10 MG TABLET PO SCH ×2 (10:08→21:09)
[2016-08-01] MEDS: GABAPENTIN 300 MG CAPSULE PO SCH (10:09)
[2016-08-01] MEDS: CLOPIDOGREL BISULFATE 75 MG TABLET PO SCH (10:09)
[2016-08-01] MEDS: INSULIN GLARGINE,HUM.REC.ANLOG 100 UNITS/ML VIAL SC SCH ×2 (10:10→21:13)
[2016-08-01] MEDS: ENOXAPARIN SODIUM 40 MG/0.4 ML SYRG SC SCH (15:21)
--- NOTE | 2016-08-01 16:49 | PN ---
Subjective - Date and Time Seen Date: 08/01/16 Time: 16:40 Subjective Narrative: Denies any complaints, less short of breath, no sputum production. Objective - Review of Systems Generalized/Overall Review: Denies: Weakness, Chills, Fever Respiratory: Reports: Shortness of Breath - less, Wheezing - less - Vitals Vitals: Vital Signs Temp 36.8 C 08/01/16 11:22 Pulse 76 08/01/16 16:29 Resp 19 08/01/16 16:29 BP 168/63 08/01/16 11:22 Pulse Ox 97 08/01/16 16:19 - Exam Constitutional: Present: Elderly, Obese - alert and oriented to person, in no NAD ENT Exam: Present: hearing grossly normal, moist mucous membranes Respiratory: Present: no accessory muscle use, wheezing - present bilaterally, improved from 07/31/16. Cardiovascular/Chest: Present: regular rate, rhythm, systolic murmur. Absent: tachycardia Abdomen: Present: Normal bowel sounds, soft, nontender, nondistended, obese Extremity: Present: normal range of motion, non-tender, no pedal edema Skin Exam: Present: warm/dry, pallor Eye contact: Present: cooperative, good eye contact Assessment/Plan Plan Narrative: 1.Pulmonary opacity in superior segment RT upper lobe: Emperically being treated as pneumonia with levofloxin 500 mg IV daily - day # 3. D/D possible malignancy, increased vasculature. Repeat CXR in a.m. for further follow-up. Repeat labs. 2. Bronchospasm: On solumedrol 60 mg IV every 6 hours. Increase sliding scale. On budenoside from 0.5 mg Q12H to Q8H. DuoNeb Q6 hours alternating with albuterol every 6 hours. Change to prednisone by mouth in a.m. if there is improvement in CXR and labs. 3 . T2DM: Continue Lantus 28 units with sliding scale. 4. UTI. UCS growing Escherichia coli sensitive to levofloxacin. cephalexin. d/cody 5. DVT prophylaxis: Lovenox 40 mg subcutaneous daily. 6. GI prophylaxis: Pantoprazole 40 mg IV daily 7. Chronic medical problems: Hypertension, coronary artery disease PTCA to RCA, PTCA and stent to LAD, dementia, GERD, osteoarthritis which are chronic and stable.
[2016-08-01] MEDS: ALPRAZolam 0.25 MG TABLET PO PRN (17:28)
[2016-08-01] MEDS: ACETAMINOPHEN 500 MG TABLET PO PRN (21:07)
[2016-08-01] MEDS: LOSARTAN POTASSIUM 50 MG TABLET PO SCH (21:08)
[2016-08-01] MEDS: GABAPENTIN 600 MG TABLET PO SCH (21:09)
[2016-08-02] MEDS: ALBUTEROL SULFATE/IPRATROPIUM 3 ML NEBU IH SCH ×4 (01:00→18:04)
[2016-08-02] MEDS: Lytes/Yerba Santa 240 APPL BTL MM SCH ×6 (01:56→20:46)
[2016-08-02] MEDS: ALBUTEROL SULFATE 2.5 MG/3 ML VIAL.NEB IH SCH ×4 (03:29→21:34)
[2016-08-02] MEDS: METHYLPREDNISOLONE SOD SUCC 60 MG in WATER FOR INJ.,BACTERIOSTATIC 0 ML IV SCH ×4 (05:02→22:36)
--- NOTE | 2016-08-02 05:24 | PN ---
Subjective - Date and Time Seen Date: 08/02/16 Time: 05:14 Objective Objective Narrative: Pt reports doing about the same as yesterday, still wheezing. Endorses increased phelgm production in the morning that she has difficult expectorating. Was able to walk to the end of the gutierrez with walker and is walking consistently back and fourth to bathroom. - Review of Systems Generalized/Overall Review: Reports: Weakness EENTM: Reports: No Symptoms Reported Respiratory: Reports: Cough, Shortness of Breath, Orthopnea, Wheezing Cardiac: Reports: No Symptoms Reported Abdominal: Reports: No Symptoms Reported Genitourinary Symptoms: Reports: No Symptoms Reported Musculoskeletal Complaints: Reports: No Symptoms Reported Neurological: Reports: No Symptoms Reported Skin: Reports: No Symptoms Reported Endocrine: Reports: No Symptoms Reported - Vitals Vitals: Last Vital Signs Temp 36.5 C 08/01/16 23:01 Pulse 64 08/02/16 03:39 Resp 16 08/02/16 03:39 BP 142/71 08/01/16 23:01 Pulse Ox 97 08/02/16 03:29 - Exam Constitutional: Present: Alert, Oriented x3, Cooperative, No distress, Overweight ENT Exam: Present: moist mucous membranes Respiratory: Present: chest non-tender, no respiratory distress, no accessory muscle use, decreased breath sounds, wheezing, expiration (prolonged) Cardiovascular/Chest: Present: normal peripheral pulses, regular rate, rhythm, no chest tenderness, no gallop, systolic murmur, edema - trace marcia LE edema Abdomen: Present: Normal bowel sounds, soft, nontender, nondistended, no rebound tenderness, no hepatospenomegaly Extremity: Present: normal range of motion, non-tender, normal inspection, no calf tenderness, normal capillary refill Skin Exam: Present: normal color, warm/dry, no cyanosis Neurologic: Present: no motor/sensory deficits, alert, normal mood/affect, oriented x 3 Appearance: Present: appropriate appearance, appropriate insight, neat, no memory impairment Eye contact: Present: cooperative, good eye contact, normal speech Thoughts: Present: normal thought pattern, no apparent hallucination Assessment/Plan Plan Narrative: 1.Pulmonary opacity in superior segment RT upper lobe: Emperically being treated as pneumonia with levofloxin 500 mg IV daily - day # 4. D/D possible malignancy, increased vasculature. Repeat CXR pending. WBC increased from 12.9 to 19, likely from solumedrol, will add manual diff. 2. Bronchospasm: On solumedrol 60 mg IV every 6 hours. Yesterday sliding scale increased, BS still in the high 300's. Will increase Lantus. On budenoside from 0.5 mg Q12H to Q8H. DuoNeb Q6 hours alternating with albuterol every 6 hours. IS and cornet order. 3 . T2DM: Continue Lantus 28 units with sliding scale. Yesterday SSI increased, BS still remain in the 300's, depending on chest xray will switch solumedrol to PO prednisone. Increase Lantus from 28 unit to 35 units BID. 4. UTI. UCS growing Escherichia coli sensitive to levofloxacin. 5. DVT prophylaxis: Lovenox 40 mg subcutaneous daily. 6. GI prophylaxis: Pantoprazole 40 mg IV daily 7. Chronic medical problems: Hypertension, coronary artery disease PTCA to RCA, PTCA and stent to LAD, dementia, GERD, osteoarthritis which are chronic and stable.
[2016-08-02 05:45] LABS: Hematocrit 44.1 % (37.0-47.0); Hemoglobin 14.7 gm/dL (12.5-16.0); Mean Cell Volume 85.6 fl (78-100); Mean Corpuscular Hemoglobin 28.5 pg (27-31); Mean Corpuscular Hgb Conc 33.3 g/dl (32-36); Mean Platelet Volume 11.5 fl (6.0-9.5); Neutrophil # 17.1 K/mm3 (1.3-6.0); Neutrophil % 89.9 % (42-75.0); Platelet Count 322 K/mm3 (150-450); Red Blood Count 5.15 M/mm3 (4.2-5.4); Red Cell Distribution Width 15.8 % (11.5-14.0)
[2016-08-02 06:03] LABS: Albumin * 3.1 gm/dl (3.4-5.0); Anion Gap 14.5 mmol/L (6.8-13.8); BUN/Creatinine Ratio 21.5 (9.0-21.6); Bilirubin, Total 0.5 mg/dL (0.0-1.1); Ca. Corrected For Albumin 9.8 mg/dL (8.4-10.2); Calcium * 9.4 mg/dL (7.9-10.9); Carbon Dioxide 26.1 mmol/L (24-32.6); Potassium 3.6 mmol/L (3.4-4.6); Total Protein 7.3 gm/dL (6.2-8.2)
[2016-08-02] MEDS: BUDESONIDE 0.5 MG/2 ML VIAL.NEB IH SCH ×3 (06:07→18:04)
[2016-08-02] MEDS: PANTOPRAZOLE SODIUM 40 MG TABLET.EC PO SCH (07:09)
[2016-08-02] MEDS: PANTOPRAZOLE SODIUM 40 MG in NORMAL SALINE 100 ML IV SCH (07:10)
[2016-08-02] MEDS: INSULIN LISPRO 100 UNITS/ML VIAL SC SCH ×3 (07:10→17:05)
[2016-08-02] MEDS: ESCITALOPRAM OXALATE 10 MG TAB PO SCH (09:19)
[2016-08-02] MEDS: SACCHAROMYCES BOULARDII 250 MG CAPSULE PO SCH ×2 (09:19→20:45)
[2016-08-02] MEDS: CHOLECALCIFEROL 1,000 UNIT CAPSULE PO SCH (09:19)
[2016-08-02] MEDS: GABAPENTIN 300 MG CAPSULE PO SCH (09:19)
[2016-08-02] MEDS: MEMANTINE HCL 10 MG TABLET PO SCH ×2 (09:19→20:45)
[2016-08-02] MEDS: CLOPIDOGREL BISULFATE 75 MG TABLET PO SCH (09:19)
[2016-08-02] MEDS: LEVOFLOXACIN/D5W 500 MG/100 ML BAG IV SCH (09:19)
[2016-08-02] MEDS: INSULIN GLARGINE,HUM.REC.ANLOG 100 UNITS/ML VIAL SC SCH ×2 (09:28→20:46)
[2016-08-02] MEDS: ENOXAPARIN SODIUM 40 MG/0.4 ML SYRG SC SCH (14:37)
[2016-08-02] MEDS: LOSARTAN POTASSIUM 50 MG TABLET PO SCH (20:46)
[2016-08-02] MEDS: GABAPENTIN 600 MG TABLET PO SCH (20:54)
[2016-08-03] MEDS: ALBUTEROL SULFATE/IPRATROPIUM 3 ML NEBU IH SCH ×4 (00:17→18:34)
[2016-08-03] MEDS: Lytes/Yerba Santa 240 APPL BTL MM SCH ×6 (01:15→21:10)
[2016-08-03] MEDS: ALBUTEROL SULFATE 2.5 MG/3 ML VIAL.NEB IH SCH ×4 (03:31→22:05)
[2016-08-03] MEDS: METHYLPREDNISOLONE SOD SUCC 60 MG in WATER FOR INJ.,BACTERIOSTATIC 0 ML IV SCH ×4 (04:42→22:39)
[2016-08-03 05:45] LABS: Hematocrit 42.7 % (37.0-47.0); Hemoglobin 14.3 gm/dL (12.5-16.0); Mean Cell Volume 84.9 fl (78-100); Mean Corpuscular Hemoglobin 28.4 pg (27-31); Mean Corpuscular Hgb Conc 33.5 g/dl (32-36); Mean Platelet Volume 11.4 fl (6.0-9.5); Neutrophil # 16.1 K/mm3 (1.3-6.0); Neutrophil % 85.3 % (42-75.0); Platelet Count 319 K/mm3 (150-450); Red Blood Count 5.03 M/mm3 (4.2-5.4); Red Cell Distribution Width 15.6 % (11.5-14.0); White Blood Count 18.9 K/mm3 (4.0-10.5)
[2016-08-03] MEDS: BUDESONIDE 0.5 MG/2 ML VIAL.NEB IH SCH ×3 (06:11→18:34)
[2016-08-03 06:16] LABS: Albumin * 2.9 gm/dl (3.4-5.0); Anion Gap 13.3 mmol/L (6.8-13.8); BUN/Creatinine Ratio 23.7 (9.0-21.6); Bilirubin, Total 0.7 mg/dL (0.0-1.1); Ca. Corrected For Albumin 9.7 mg/dL (8.4-10.2); Calcium * 9.1 mg/dL (7.9-10.9); Carbon Dioxide 27.6 mmol/L (24-32.6); Potassium 3.9 mmol/L (3.4-4.6); Total Protein 6.9 gm/dL (6.2-8.2)
[2016-08-03] MEDS: PANTOPRAZOLE SODIUM 40 MG in NORMAL SALINE 100 ML IV SCH (07:41)
[2016-08-03] MEDS: INSULIN LISPRO 100 UNITS/ML VIAL SC SCH ×3 (07:48→17:19)
[2016-08-03] MEDS: INSULIN GLARGINE,HUM.REC.ANLOG 100 UNITS/ML VIAL SC SCH ×2 (09:12→21:12)
[2016-08-03] MEDS: LEVOFLOXACIN/D5W 500 MG/100 ML BAG IV SCH (09:13)
[2016-08-03] MEDS: GABAPENTIN 300 MG CAPSULE PO SCH (09:16)
[2016-08-03] MEDS: MEMANTINE HCL 10 MG TABLET PO SCH ×2 (09:16→21:10)
[2016-08-03] MEDS: CLOPIDOGREL BISULFATE 75 MG TABLET PO SCH (09:16)
[2016-08-03] MEDS: CHOLECALCIFEROL 1,000 UNIT CAPSULE PO SCH (09:16)
[2016-08-03] MEDS: ESCITALOPRAM OXALATE 10 MG TAB PO SCH (09:16)
[2016-08-03] MEDS: SACCHAROMYCES BOULARDII 250 MG CAPSULE PO SCH ×2 (09:16→21:10)
[2016-08-03] MEDS: ENOXAPARIN SODIUM 40 MG/0.4 ML SYRG SC SCH (14:47)
[2016-08-03] MEDS: GABAPENTIN 600 MG TABLET PO SCH (21:10)
[2016-08-03] MEDS: LOSARTAN POTASSIUM 50 MG TABLET PO SCH (21:12)
[2016-08-04] MEDS: ALBUTEROL SULFATE/IPRATROPIUM 3 ML NEBU IH SCH ×4 (00:40→19:15)
[2016-08-04] MEDS: Lytes/Yerba Santa 240 APPL BTL MM SCH ×6 (02:05→20:58)
[2016-08-04] MEDS: ALBUTEROL SULFATE 2.5 MG/3 ML VIAL.NEB IH SCH ×4 (03:51→21:39)
[2016-08-04] MEDS: METHYLPREDNISOLONE SOD SUCC 60 MG in WATER FOR INJ.,BACTERIOSTATIC 0 ML IV SCH ×2 (04:57→11:15)
[2016-08-04] MEDS: BUDESONIDE 0.5 MG/2 ML VIAL.NEB IH SCH ×3 (06:17→19:16)
[2016-08-04] MEDS: PANTOPRAZOLE SODIUM 40 MG in NORMAL SALINE 100 ML IV SCH (07:16)
[2016-08-04] MEDS: INSULIN LISPRO 100 UNITS/ML VIAL SC SCH ×3 (07:17→17:55)
[2016-08-04] MEDS: SACCHAROMYCES BOULARDII 250 MG CAPSULE PO SCH ×2 (08:48→20:58)
[2016-08-04] MEDS: GABAPENTIN 300 MG CAPSULE PO SCH (08:48)
[2016-08-04] MEDS: MEMANTINE HCL 10 MG TABLET PO SCH ×2 (08:48→20:58)
[2016-08-04] MEDS: LEVOFLOXACIN/D5W 500 MG/100 ML BAG IV SCH (08:48)
[2016-08-04] MEDS: ESCITALOPRAM OXALATE 10 MG TAB PO SCH (08:48)
[2016-08-04] MEDS: CHOLECALCIFEROL 1,000 UNIT CAPSULE PO SCH (08:48)
[2016-08-04] MEDS: CLOPIDOGREL BISULFATE 75 MG TABLET PO SCH (08:48)
[2016-08-04] MEDS: INSULIN GLARGINE,HUM.REC.ANLOG 100 UNITS/ML VIAL SC SCH ×2 (08:49→21:02)
[2016-08-04] MEDS ORDERED: AZITHROMYCIN 250 MG TABLET PO ONE (09:00)
--- NOTE | 2016-08-04 11:04 | PN ---
Subjective - Date and Time Seen Date: 08/03/16 Time: 08:30 Subjective Narrative: c/o mild sob at rest; is thinking of going to NH if not getting better. Objective - Review of Systems Generalized/Overall Review: Denies: Weakness, Chills, Fever Respiratory: Reports: Cough, Shortness of Breath Cardiac: Denies: Chest Pain, Edema - Vitals Vitals: Vital Signs 08/03/16 03:18 Temperature 36.1 C L Resp Rate 22 H Blood Pressure 130/79 O2 Sat 99% RA - Abnormal Lab Findings Abnormal Lab Findings: Laboratory Tests 08/03/16 05:15 WBC 18.9 H Hgb 14.3 Hct 42.7 Plt Count 319 08/03/16 05:15 Plasma Sodium 140 Potassium 3.9 Chloride 101 Carbon Dioxide 27.6 BUN 23 Creatinine 0.97 Random Glucose 253 H Total Bilirubin 0.7 AST 22 ALT 21 Alkaline Phosphatase 78 Albumin 2.9 L - EKG/Xray Findings Interpretation: Reviewed by me - FROM 08/01/16 - New infitrate on LT side ; RTside improving - Exam Constitutional: Present: Elderly, Obese - alert x 1 ENT Exam: Present: hearing grossly normal, other - tongue coated Neck: Present: normal inspection, trachea midline Respiratory: Present: no accessory muscle use - AUDIBLE WHEEZING W/O STETHESCOPE Cardiovascular/Chest: Present: normal peripheral pulses, regular rate, rhythm, systolic murmur. Absent: tachycardia Abdomen: Present: Normal bowel sounds, soft, nontender, obese Skin Exam: Present: warm/dry, pallor Eye contact: Present: cooperative, good eye contact, normal speech Assessment/Plan Plan Narrative: 1. Left lower lobe atelectasis/infitrate and Pulmonary opacity in superior segment RT upper lobe: Emperically being treated as pneumonia with levofloxin 500 mg IV daily - day #4 . D/D possible malignancy, increased vasculature. Cornet Q2H emphasized. 2. Bronchospasm: Audible wheezing today - cintinue solumedrol 60 mg IV every 6 hours. Increase sliding scale. On budenoside from 0.5 mg Q12H to Q8H. DuoNeb Q6 hours alternating with albuterol every 6 hours. 3 . T2DM: Lantus 28 units SQ increased to 35 units SQ BID with sliding scale. 4. UTI. UCS growing Escherichia coli sensitive to levofloxacin. cephalexin. d/cody 5. DVT prophylaxis: Lovenox 40 mg subcutaneous daily. 6. GI prophylaxis: Pantoprazole 40 mg IV daily 7. Chronic medical problems: Hypertension, coronary artery disease PTCA to RCA, PTCA and stent to LAD, dementia, GERD, osteoarthritis which are chronic and stable.
--- NOTE | 2016-08-04 11:48 | PN ---
Subjective - Date and Time Seen Date: 08/04/16 Time: 11:48 Subjective Narrative: Feels better, less SOB, not much wheezing today. Objective - Review of Systems Generalized/Overall Review: Denies: Weakness, Chills, Fever Respiratory: Reports: Cough - improving, Shortness of Breath Cardiac: Denies: Chest Pain, Edema Abdominal: Denies: Nausea, Vomiting - Vitals Vitals: La Vital Signs Temp 36.6 C 08/04/16 08:00 Pulse 72 08/04/16 10:11 Resp 20 08/04/16 10:11 BP 146/66 08/04/16 08:00 Pulse Ox 96 08/04/16 10:03 - Exam Constitutional: Present: Elderly, Obese - alert and in NAD ENT Exam: Present: hearing grossly normal, moist mucous membranes - tongue red, no yeast Respiratory: Present: wheezing - occassionally. Absent: no accessory muscle use Cardiovascular/Chest: Present: regular rate, rhythm, systolic murmur. Absent: tachycardia Abdomen: Present: Normal bowel sounds, soft, nontender, nondistended, obese Extremity: Present: normal range of motion, non-tender, normal inspection Eye contact: Present: cooperative, good eye contact Assessment/Plan Plan Narrative: 1. New Left lower lobe atelectasis/infitrate and Pulmonary opacity in superior segment RT upper lobe: Emperically being treated as pneumonia with levofloxin 500 mg IV daily - day # 5. D/D possible malignancy, increased vasculature. Cornet Q2H emphasized. 2. Bronchospasm: D/C solumedrol IV. Prednisone 60 mg PO daily. On budenoside from 0.5 mg Q12H to Q8H. DuoNeb IH Q6 H SHARI; albuterol 2.5 ml IH Q6H to alternate with duoneb PRN for wheezing. 3 . T2DM: On Lantus 35 units SQ BID with sliding scale. 4. UTI. UCS growing Escherichia coli sensitive to levofloxacin. 5. DVT prophylaxis: Lovenox 40 mg subcutaneous daily. 6. Chronic medical problems: These include HTN, CAD, HLD, dementia, anxiety and depression which are currently stable.
[2016-08-04] MEDS ORDERED: predniSONE 20 MG TABLET PO SCH (12:00)
[2016-08-04] MEDS: ENOXAPARIN SODIUM 40 MG/0.4 ML SYRG SC SCH (15:06)
[2016-08-04] MEDS: predniSONE 20 MG TABLET PO SCH (16:48)
[2016-08-04] MEDS: GABAPENTIN 600 MG TABLET PO SCH (20:58)
[2016-08-04] MEDS: LOSARTAN POTASSIUM 50 MG TABLET PO SCH (20:59)
[2016-08-05] MEDS: ALBUTEROL SULFATE/IPRATROPIUM 3 ML NEBU IH SCH ×4 (00:10→18:11)
[2016-08-05] MEDS: Lytes/Yerba Santa 240 APPL BTL MM SCH ×6 (00:51→20:46)
[2016-08-05] MEDS: ALBUTEROL SULFATE 2.5 MG/3 ML VIAL.NEB IH SCH ×2 (03:09→09:08)
[2016-08-05] MEDS: BUDESONIDE 0.5 MG/2 ML VIAL.NEB IH SCH ×3 (06:02→23:30)
[2016-08-05] MEDS: INSULIN LISPRO 100 UNITS/ML VIAL SC SCH ×3 (06:54→17:22)
[2016-08-05] MEDS: PANTOPRAZOLE SODIUM 40 MG in NORMAL SALINE 100 ML IV SCH (06:54)
[2016-08-05] MEDS: CHOLECALCIFEROL 1,000 UNIT CAPSULE PO SCH (08:41)
[2016-08-05] MEDS: MEMANTINE HCL 10 MG TABLET PO SCH ×2 (08:42→20:45)
[2016-08-05] MEDS: INSULIN GLARGINE,HUM.REC.ANLOG 100 UNITS/ML VIAL SC SCH ×2 (08:42→20:41)
[2016-08-05] MEDS: CLOPIDOGREL BISULFATE 75 MG TABLET PO SCH (08:42)
[2016-08-05] MEDS: GABAPENTIN 300 MG CAPSULE PO SCH (08:42)
[2016-08-05] MEDS: predniSONE 20 MG TABLET PO SCH (08:42)
[2016-08-05] MEDS: ESCITALOPRAM OXALATE 10 MG TAB PO SCH (08:42)
[2016-08-05] MEDS: SACCHAROMYCES BOULARDII 250 MG CAPSULE PO SCH ×2 (08:42→20:45)
[2016-08-05 09:21] LABS: Hematocrit 45.2 % (37.0-47.0); Mean Cell Volume 84.6 fl (78-100); Mean Corpuscular Hemoglobin 28.1 pg (27-31); Mean Corpuscular Hgb Conc 33.2 g/dl (32-36); Mean Platelet Volume 10.8 fl (6.0-9.5); Platelet Count 352 K/mm3 (150-450); Red Blood Count 5.34 M/mm3 (4.2-5.4); Red Cell Distribution Width 15.3 % (11.5-14.0)
[2016-08-05 09:23] LABS: Total Cells Counted 100
[2016-08-05 09:33] LABS: Albumin * 2.8 gm/dl (3.4-5.0); Anion Gap 14.6 mmol/L (6.8-13.8); BUN/Creatinine Ratio 21.2 (9.0-21.6); Bilirubin, Total 0.7 mg/dL (0.0-1.1); Ca. Corrected For Albumin 9.3 mg/dL (8.4-10.2); Calcium * 8.7 mg/dL (7.9-10.9); Carbon Dioxide 25.4 mmol/L (24-32.6); Total Protein 6.6 gm/dL (6.2-8.2)
[2016-08-05 09:45] LABS: Atypical (Reactive) Lymph 1 % (0-2); Band 1 % (0-2.0); Immature Granulocyte 1 (0-1); Lymphocyte 9 % (20-51)
[2016-08-05 09:47] LABS: Monocyte 8 % (0-9); Neutrophil 80 % (42-75); Neutrophil # 15.2 K/mm3 (1.3-6.0); Platelet Estimate Normal (NORMAL); Schistocytes Trace
[2016-08-05 09:50] LABS: Target Cells 1+; Toxic Granulation 1+
[2016-08-05] MEDS ORDERED: ALBUTEROL SULFATE 2.5 MG/3 ML VIAL.NEB IH PRN (09:51)
[2016-08-05] MEDS: ENOXAPARIN SODIUM 40 MG/0.4 ML SYRG SC SCH (16:13)
[2016-08-05] MEDS: AZITHROMYCIN 500 MG in DEXTROSE 5 % IN WATER 250 ML IV SCH ×2 (16:20)
[2016-08-05] MEDS ORDERED: AZITHROMYCIN 250 MG TABLET PO SCH (17:00)
[2016-08-05] MEDS: LOSARTAN POTASSIUM 50 MG TABLET PO SCH (20:45)
[2016-08-05] MEDS: GABAPENTIN 600 MG TABLET PO SCH (20:46)
[2016-08-06] MEDS: ALBUTEROL SULFATE/IPRATROPIUM 3 ML NEBU IH SCH ×4 (01:05→18:05)
[2016-08-06] MEDS: Lytes/Yerba Santa 240 APPL BTL MM SCH ×6 (02:29→20:52)
[2016-08-06] MEDS: BUDESONIDE 0.5 MG/2 ML VIAL.NEB IH SCH ×3 (06:12→18:08)
[2016-08-06] MEDS: INSULIN LISPRO 100 UNITS/ML VIAL SC SCH ×3 (07:28→17:23)
[2016-08-06] MEDS: GABAPENTIN 300 MG CAPSULE PO SCH (09:28)
[2016-08-06] MEDS: CHOLECALCIFEROL 1,000 UNIT CAPSULE PO SCH (09:28)
[2016-08-06] MEDS: ESCITALOPRAM OXALATE 10 MG TAB PO SCH (09:29)
[2016-08-06] MEDS: CLOPIDOGREL BISULFATE 75 MG TABLET PO SCH (09:29)
[2016-08-06] MEDS: SACCHAROMYCES BOULARDII 250 MG CAPSULE PO SCH ×2 (09:29→20:53)
[2016-08-06] MEDS: INSULIN GLARGINE,HUM.REC.ANLOG 100 UNITS/ML VIAL SC SCH ×2 (09:29→20:56)
[2016-08-06] MEDS: MEMANTINE HCL 10 MG TABLET PO SCH ×2 (09:29→20:53)
[2016-08-06] MEDS: ENOXAPARIN SODIUM 40 MG/0.4 ML SYRG SC SCH (14:36)
[2016-08-06] MEDS: MEROPENEM 1 GM in NORMAL SALINE 100 ML IV SCH ×2 (14:36→22:34)
[2016-08-06] MEDS: AZITHROMYCIN 500 MG in DEXTROSE 5 % IN WATER 250 ML IV SCH ×2 (15:19)
--- NOTE | 2016-08-06 16:38 | PN ---
Subjective - Date and Time Seen Date: 08/05/16 Time: 10:00 Subjective Narrative: ambulating better, occassional cough/ wheezing, gradual improvement in overall condition. Objective - Review of Systems Generalized/Overall Review: Denies: Chills, Fever Respiratory: Reports: Shortness of Breath, Wheezing Cardiac: Denies: Chest Pain, Edema Abdominal: Denies: Nausea, Vomiting - Vitals Vitals: Vital Signs 08/05/16 09:00 Temperature 36.6 C Pulse Rate 96 Resp rate 20 Blood Pressure 124/72 O2 Sat 92 % RA - Abnormal Lab Findings Abnormal Lab Findings: Laboratory Tests 08/05/16 09:08 WBC 19.0 H Hgb 15.0 Hct 45.2 Plt Count 352 Neutrophils % (Manual) 80 H Band Neuts % (Manual) 1 08/05/16 09:08 Plasma Sodium 136 Potassium 4.0 Chloride 98 Carbon Dioxide 25.4 BUN 24 H Creatinine 1.13 Est GFR (Non-Af Amer) 49 L Random Glucose 228 H Total Protein 6.6 Albumin 2.8 L - Exam Constitutional: Present: Elderly, Obese - alert, in NAD ENT Exam: Present: hearing grossly normal - tongue red. Respiratory: Present: no accessory muscle use, wheezing - intermittent. Cardiovascular/Chest: Present: regular rate, rhythm, systolic murmur. Absent: tachycardia Abdomen: Present: Normal bowel sounds, soft, nontender, obese Skin Exam: Present: normal color, warm/dry Eye contact: Present: cooperative, good eye contact, normal speech Assessment/Plan Plan Narrative: 1. New Left lower lobe atelectasis/infitrate and Pulmonary opacity in superior segment RT upper lobe: Emperically being treated as pneumonia with levofloxin 500 mg IV daily - day #5 to 08/04/2016. Patient started on CTX 1 g IV daily and azithromycin 500 gm IV daily after discussion with pharmacist to decrease fluoroquinolone resistance. Cornet Q2H emphasized. 2. Bronchospasm: On Prednisone 60 mg PO daily. On budenoside from 0.5 mg IH Q12H. DuoNeb IH Q6 H SHARI; albuterol 2.5 ml IH Q6H to alternate with duoneb PRN for wheezing. 3 . T2DM: On Lantus 35 units SQ BID with sliding scale. 4. UTI. UCS growing Escherichia coli sensitive to levofloxacin. 5. DVT prophylaxis: Lovenox 40 mg subcutaneous daily. 6. Chronic medical problems: These include HTN, CAD, HLD, dementia, anxiety and depression which are currently stable.
[2016-08-06] MEDS ORDERED: NORMAL SALINE 1,000 ML IV STA (16:42)
--- NOTE | 2016-08-06 16:55 | PN ---
Subjective - Date and Time Seen Date: 08/06/16 Time: 16:47 Objective Objective Narrative: Patient has less cough and wheezing. able to do cornet when prompted. - Review of Systems Generalized/Overall Review: Denies: Weakness, Chills Respiratory: Reports: Shortness of Breath Cardiac: Denies: Chest Pain, Edema - Vitals Vitals: Vital Signs Temp 36.7 C 08/06/16 09:00 Pulse 85 08/06/16 13:31 Resp 20 08/06/16 13:00 BP 99/49 08/06/16 13:31 Pulse Ox 92 08/06/16 12:50 - EKG/Xray Findings Interpretation: Reviewed by me - Exam Constitutional: Present: Elderly, Obese - alert, in NAD. ENT Exam: Present: hearing grossly normal - tongue red. Neck: Present: normal inspection, trachea midline Respiratory: Present: no accessory muscle use, wheezing - intermittent, few crackles LT base. Cardiovascular/Chest: Present: regular rate, rhythm, systolic murmur. Absent: tachycardia Abdomen: Present: Normal bowel sounds, soft, nontender, obese Skin Exam: Present: normal color, warm/dry Eye contact: Present: cooperative, good eye contact, normal speech Assessment/Plan Plan Narrative: 1. Pneumonia in RUL: Emperically being treated as pneumonia with levofloxin 500 mg IV daily . D/D possible malignancy, increased vasculature. likely from solumedrol, will add manual diff. CXR on 08/06/2016 shows worsening of the infiltrate however the patient is clinically improved. 2. Bronchospasm: On budenoside from 0.5 mg Q12H. DuoNeb Q6 hours alternating with albuterol every 6 hours. IS and cornet every 2-3 hours while awake. Patient on oral prednisone. 3 . T2DM: BS still remain in the 200's. T2 DM in poor control given her age. 4. UTI. UCS growing Escherichia coli sensitive to levofloxacin. 5. DVT prophylaxis: Lovenox 40 mg subcutaneous daily. 6. GI prophylaxis: Pantoprazole 40 mg IV daily 7. Chronic medical problems: Hypertension, coronary artery disease PTCA to RCA, PTCA and stent to LAD, dementia, GERD, osteoarthritis which are chronic and stable.
[2016-08-06] MEDS: NORMAL SALINE 1,000 ML IV ONE (20:45)
[2016-08-06] MEDS: LOSARTAN POTASSIUM 50 MG TABLET PO SCH (20:52)
[2016-08-06] MEDS: GABAPENTIN 600 MG TABLET PO SCH (20:53)
[2016-08-07] MEDS: ALBUTEROL SULFATE/IPRATROPIUM 3 ML NEBU IH SCH ×4 (00:18→18:14)
[2016-08-07] MEDS: Lytes/Yerba Santa 240 APPL BTL MM SCH ×6 (01:48→22:20)
[2016-08-07] MEDS: NORMAL SALINE 1,000 ML IV ONE (02:12)
[2016-08-07] MEDS: BUDESONIDE 0.5 MG/2 ML VIAL.NEB IH SCH ×2 (06:03→18:16)
[2016-08-07] MEDS: INSULIN LISPRO 100 UNITS/ML VIAL SC SCH ×3 (06:26→17:21)
[2016-08-07] MEDS: MEROPENEM 1 GM in NORMAL SALINE 100 ML IV SCH ×3 (07:00→22:20)
[2016-08-07] MEDS: MEMANTINE HCL 10 MG TABLET PO SCH ×2 (09:14→20:27)
[2016-08-07] MEDS: SACCHAROMYCES BOULARDII 250 MG CAPSULE PO SCH ×2 (09:14→20:22)
[2016-08-07] MEDS: CHOLECALCIFEROL 1,000 UNIT CAPSULE PO SCH (09:15)
[2016-08-07] MEDS: GABAPENTIN 300 MG CAPSULE PO SCH (09:15)
[2016-08-07] MEDS: ESCITALOPRAM OXALATE 10 MG TAB PO SCH (09:15)
[2016-08-07] MEDS: CLOPIDOGREL BISULFATE 75 MG TABLET PO SCH (09:15)
[2016-08-07] MEDS: predniSONE 20 MG TABLET PO SCH (09:19)
[2016-08-07] MEDS: INSULIN GLARGINE,HUM.REC.ANLOG 100 UNITS/ML VIAL SC SCH ×2 (09:23→20:21)
[2016-08-07] MEDS ORDERED: ALBUTEROL SULFATE 200 PUFF INHALER IH PRN (10:24)
[2016-08-07] MEDS ORDERED: ALBUTEROL SULFATE/IPRATROPIUM 3 ML NEBU IH PRN (10:24)
[2016-08-07] MEDS ORDERED: NITROGLYCERIN 0.4 MG/TAB BTL SL PRN (10:24)
[2016-08-07] MEDS ORDERED: ALBUTEROL SULFATE 2.5 MG/3 ML VIAL.NEB IH PRN (10:42)
[2016-08-07] MEDS: ENOXAPARIN SODIUM 40 MG/0.4 ML SYRG SC SCH (14:08)
--- NOTE | 2016-08-07 14:28 | PN ---
<Rain Madden - Last Filed: 08/07/16 14:17> Subjective - Date and Time Seen Date: 08/07/16 Time: 10:18 Subjective Narrative: doing ok. walking in halls. starting to feel better. Objective - Review of Systems Generalized/Overall Review: Reports: Weakness, Fatigue EENTM: Reports: No Symptoms Reported Respiratory: Reports: Cough Cardiac: Reports: No Symptoms Reported Abdominal: Reports: No Symptoms Reported Genitourinary Symptoms: Reports: No Symptoms Reported Musculoskeletal Complaints: Reports: No Symptoms Reported Neurological: Reports: No Symptoms Reported Skin: Reports: No Symptoms Reported Endocrine: Reports: No Symptoms Reported Misc: All systems neg except as marked - Vitals Vitals: Last Vital Signs Temp 36.2 C L 08/07/16 10:01 Pulse 74 08/07/16 13:17 Resp 20 08/07/16 13:17 BP 172/82 08/07/16 10:01 Pulse Ox 92 08/07/16 13:17 - Abnormal Lab Findings Abnormal Lab Findings: Abnormal Lab Results 08/07/16 Range/Units 02:10 Random Glucose 54 L D (70-110) mg/dL - Exam Constitutional: Present: Alert, Cooperative, No distress ENT Exam: Present: hearing grossly normal Neck: Present: full range of motion, supple Breasts: Present: Exam deferred Respiratory: Present: normal breath sounds, decreased breath sounds Cardiovascular/Chest: Present: regular rate, rhythm, no chest tenderness Abdomen: Present: soft, nontender, nondistended /Rectal: Present: Exam deferred Extremity: Present: non-tender, normal inspection Skin Exam: Present: warm/dry, no cyanosis Assessment/Plan Plan Narrative: 1. New Left lower lobe atelectasis/infitrate and Pulmonary opacity in superior segment RT upper lobe: - treated as pneumonia - encouraged IS / cornet - treated with azithromycin 500 mg IV daily - day #3 - treated with meropenem 1 gm q 8 hours - day #2 after chest xray (08/06/16) showed worsening infiltrate - currently on probiotics Emperically being treated as pneumonia with levofloxin 500 mg IV daily - day #5 to 08/04/2016. Patient started on CTX 1 g IV daily (2 days given) and azithromycin 500 gm IV daily after discussion with pharmacist to decrease fluoroquinolone resistance. Cornet Q2H emphasized. 2. Bronchospasm: - on prednisone 60 mg po daily - budenoside 0.5 mg in q 12 hours - duonebs q 6 hours scheduled - albuterol neb q 6 hours to alternate with duoneb prn for wheezing 3 . T2DM: - lantus 28 units sq bid with sliding scale 4. UTI. - final urine culture grew e. coli - sensitive to meropenen 5. DVT prophylaxis: - Lovenox 40 mg subcutaneous daily. 6. Chronic medical problems: - HTN, CAD, HLD, dementia, anxiety and depression - stable. <Umer Snell - Last Filed: 08/07/16 16:43> Subjective Subjective Narrative: Family remarks she will tend to resist ambulation. We will be very careful in assisting her with ambulation. We will continue with current antibiotics. She will require additional rehab beyond the time here in our hospital. I personally directed all of our nurse practitioner hospitalist's care for this patient. Objective - Vitals Vitals: Last Vital Signs Temp 36.7 C 08/07/16 16:04 Pulse 77 08/07/16 16:04 Resp 20 08/07/16 16:04 BP 151/84 08/07/16 16:04 Pulse Ox 93 08/07/16 16:04 - Abnormal Lab Findings Abnormal Lab Findings: Abnormal Lab Results 08/07/16 Range/Units 02:10 Random Glucose 54 L D (70-110) mg/dL
[2016-08-07] MEDS: AZITHROMYCIN 500 MG in DEXTROSE 5 % IN WATER 250 ML IV SCH ×2 (15:33)
[2016-08-07] MEDS: LOSARTAN POTASSIUM 50 MG TABLET PO SCH (20:26)
[2016-08-07] MEDS: GABAPENTIN 600 MG TABLET PO SCH (20:27)
[2016-08-07] MEDS: ACETAMINOPHEN 500 MG TABLET PO PRN (20:33)
[2016-08-07] MEDS: ALPRAZolam 0.25 MG TABLET PO PRN (22:31)
[2016-08-08] MEDS: ALBUTEROL SULFATE/IPRATROPIUM 3 ML NEBU IH SCH ×4 (00:21→18:09)
[2016-08-08] MEDS: Lytes/Yerba Santa 240 APPL BTL MM SCH ×7 (02:13→21:18)
[2016-08-08 05:37] LABS: Hematocrit 44.9 % (37.0-47.0); Mean Cell Volume 84.7 fl (78-100); Mean Corpuscular Hemoglobin 28.3 pg (27-31); Mean Corpuscular Hgb Conc 33.4 g/dl (32-36); Mean Platelet Volume 10.5 fl (6.0-9.5); Platelet Count 351 K/mm3 (150-450); Red Cell Distribution Width 15.2 % (11.5-14.0); White Blood Count 21.5 K/mm3 (4.0-10.5)
[2016-08-08 05:44] LABS: Total Cells Counted 100
[2016-08-08 05:57] LABS: Anion Gap 10.3 mmol/L (6.8-13.8); BUN/Creatinine Ratio 23.7 (9.0-21.6); Calcium * 8.4 mg/dL (7.9-10.9); Carbon Dioxide 29.6 mmol/L (24-32.6); Estimated Creat Clear 33.5; Potassium 3.9 mmol/L (3.4-4.6)
[2016-08-08] MEDS: BUDESONIDE 0.5 MG/2 ML VIAL.NEB IH SCH ×2 (06:00→18:11)
[2016-08-08 06:27] LABS: Dohle Bodies 1+; Eosinophil 3 % (0-3); Howell-Jolly Bodies 1+; Lymphocyte 19 % (20-51); Monocyte 3 % (0-9); Neutrophil 75 % (42-75); Neutrophil # 16.1 K/mm3 (1.3-6.0); Target Cells 2+
[2016-08-08 06:28] LABS: Platelet Estimate Normal (NORMAL)
[2016-08-08] MEDS: MEROPENEM 1 GM in NORMAL SALINE 100 ML IV SCH ×3 (06:37→23:12)
[2016-08-08] MEDS: INSULIN LISPRO 100 UNITS/ML VIAL SC SCH ×3 (06:40→17:18)
[2016-08-08] MEDS: PRAVASTATIN SODIUM 40 MG PO SCH (09:16)
[2016-08-08] MEDS: predniSONE 20 MG TABLET PO SCH (09:17)
[2016-08-08] MEDS: SACCHAROMYCES BOULARDII 250 MG CAPSULE PO SCH ×2 (09:17→21:16)
[2016-08-08] MEDS: CHOLECALCIFEROL 1,000 UNIT CAPSULE PO SCH (09:17)
[2016-08-08] MEDS: MEMANTINE HCL 10 MG TABLET PO SCH ×2 (09:17→21:18)
[2016-08-08] MEDS: GABAPENTIN 300 MG CAPSULE PO SCH (09:17)
[2016-08-08] MEDS: CLOPIDOGREL BISULFATE 75 MG TABLET PO SCH (09:17)
[2016-08-08] MEDS: ESCITALOPRAM OXALATE 10 MG TAB PO SCH (09:17)
[2016-08-08] MEDS: INSULIN GLARGINE,HUM.REC.ANLOG 100 UNITS/ML VIAL SC SCH ×2 (09:25→21:14)
--- NOTE | 2016-08-08 12:53 | PN ---
<Rain Madden - Last Filed: 08/08/16 12:50> Subjective - Date and Time Seen Date: 08/08/16 Time: 09:20 Subjective Narrative: tired. c/o overall weakness. states she knows she needs to walk but feels very weak. Objective - Review of Systems Generalized/Overall Review: Reports: Weakness, Fatigue EENTM: Reports: No Symptoms Reported Respiratory: Reports: Cough Cardiac: Reports: No Symptoms Reported Abdominal: Reports: No Symptoms Reported Genitourinary Symptoms: Reports: No Symptoms Reported Musculoskeletal Complaints: Reports: No Symptoms Reported Neurological: Reports: No Symptoms Reported Skin: Reports: No Symptoms Reported Endocrine: Reports: No Symptoms Reported Misc: All systems neg except as marked - Vitals Vitals: Last Vital Signs Temp 35.8 C L 08/08/16 09:53 Pulse 79 08/08/16 09:53 Resp 16 08/08/16 09:53 BP 136/82 08/08/16 09:53 Pulse Ox 93 08/08/16 09:53 - Abnormal Lab Findings Abnormal Lab Findings: Abnormal Lab Results 08/08/16 08/08/16 Range/Units 05:10 05:10 WBC 21.5 H (4.0-10.5) K/mm3 RDW 15.2 H (11.5-14.0) % MPV 10.5 H (6.0-9.5) fl Lymphocytes % (Manual) 19 L (20-51) % Neutrophils # (Manual) 16.1 H (1.3-6.0) K/mm3 Lymphocytes # (Manual) 4.1 H (1.5-3.5) k/mm3 Est GFR (Non-Af Amer) 58 L (60-130) mL/min BUN/Creatinine Ratio 23.7 H (9.0-21.6) - Exam Constitutional: Present: Cooperative, No distress ENT Exam: Present: hearing grossly normal Neck: Present: full range of motion, supple Breasts: Present: Exam deferred Respiratory: Present: normal breath sounds, no respiratory distress, no accessory muscle use Cardiovascular/Chest: Present: regular rate, rhythm, no chest tenderness Abdomen: Present: soft, nontender, nondistended /Rectal: Present: Exam deferred Extremity: Present: non-tender, normal inspection Skin Exam: Present: normal color, warm/dry, no cyanosis Assessment/Plan Plan Narrative: 1. New Left lower lobe atelectasis/infitrate and Pulmonary opacity in superior segment RT upper lobe: - treated as pneumonia - encouraged IS / cornet - REALLY encouraged pt to use cornet - treated with azithromycin 500 mg IV daily - day #4 - treated with meropenem 1 gm q 8 hours - day #3 after chest xray (08/06/16) showed worsening infiltrate - currently on probiotics Emperically being treated as pneumonia with levofloxin 500 mg IV daily - day #5 to 08/04/2016. Patient started on CTX 1 g IV daily (2 days given) and azithromycin 500 gm IV daily after discussion with pharmacist to decrease fluoroquinolone resistance. Cornet Q2H emphasized. 2. Bronchospasm: - on prednisone 60 mg po daily - budenoside 0.5 mg in q 12 hours - duonebs q 6 hours scheduled - albuterol neb q 6 hours to alternate with duoneb prn for wheezing 3 . T2DM: - lantus 28 units sq bid with sliding scale 4. UTI. - final urine culture grew e. coli - sensitive to meropenen 5. DVT prophylaxis: - Lovenox 40 mg subcutaneous daily. 6. Chronic medical problems: - HTN, CAD, HLD, dementia, anxiety and depression - stable. Patient has already walked once in the hallway this am. Instructed her that she needs to walk an additional 2 times in the hallway today at a minimum. <Umer Snell - Last Filed: 08/08/16 13:31> Subjective Subjective Narrative: Is eating well. Very little cough. SOB is about the same. Has walked once so far today. wbc count has gone up a little today, but neutrophil percentage down a little. Will follow labs and continue IV antibiotics. Will decrease prednisone from 40 to 20 mg daily. Objective - Vitals Vitals: Last Vital Signs Temp 35.8 C L 08/08/16 09:53 Pulse 79 08/08/16 09:53 Resp 16 08/08/16 09:53 BP 136/82 08/08/16 09:53 Pulse Ox 93 08/08/16 09:53 - Abnormal Lab Findings Abnormal Lab Findings: Abnormal Lab Results 08/08/16 08/08/16 Range/Units 05:10 05:10 WBC 21.5 H (4.0-10.5) K/mm3 RDW 15.2 H (11.5-14.0) % MPV 10.5 H (6.0-9.5) fl Lymphocytes % (Manual) 19 L (20-51) % Neutrophils # (Manual) 16.1 H (1.3-6.0) K/mm3 Lymphocytes # (Manual) 4.1 H (1.5-3.5) k/mm3 Est GFR (Non-Af Amer) 58 L (60-130) mL/min BUN/Creatinine Ratio 23.7 H (9.0-21.6)
[2016-08-08] MEDS: ENOXAPARIN SODIUM 40 MG/0.4 ML SYRG SC SCH (14:50)
[2016-08-08] MEDS: AZITHROMYCIN 500 MG in DEXTROSE 5 % IN WATER 250 ML IV SCH ×2 (15:35)
[2016-08-08] MEDS: ACETAMINOPHEN 500 MG TABLET PO PRN (16:50)
[2016-08-08] MEDS: LOSARTAN POTASSIUM 50 MG TABLET PO SCH (21:17)
[2016-08-08] MEDS: GABAPENTIN 600 MG TABLET PO SCH (21:18)
[2016-08-08] MEDS: ALPRAZolam 0.25 MG TABLET PO PRN (21:23)
[2016-08-09] MEDS: Lytes/Yerba Santa 240 APPL BTL MM SCH ×3 (00:54→10:15)
[2016-08-09] MEDS: ALBUTEROL SULFATE/IPRATROPIUM 3 ML NEBU IH SCH ×2 (01:04→06:07)
[2016-08-09 06:03] LABS: Hematocrit 45.4 % (37.0-47.0); Hemoglobin 14.8 gm/dL (12.5-16.0); Mean Cell Volume 88.7 fl (78-100); Mean Corpuscular Hemoglobin 28.9 pg (27-31); Mean Corpuscular Hgb Conc 32.6 g/dl (32-36); Platelet Count 325 K/mm3 (150-450); Red Blood Count 5.12 M/mm3 (4.2-5.4); Red Cell Distribution Width 16.1 % (11.5-14.0); White Blood Count 21.8 K/mm3 (4.0-10.5)
[2016-08-09] MEDS: BUDESONIDE 0.5 MG/2 ML VIAL.NEB IH SCH (06:07)
[2016-08-09 06:12] LABS: Total Cells Counted 100
[2016-08-09 06:13] LABS: BUN/Creatinine Ratio 23.2 (9.0-21.6); Calcium * 8.6 mg/dL (7.9-10.9); Carbon Dioxide 29.1 mmol/L (24-32.6); Estimated Creat Clear 32.9; Potassium 4.1 mmol/L (3.4-4.6)
[2016-08-09 06:29] VITALS: BP 161/66
[2016-08-09] MEDS: INSULIN LISPRO 100 UNITS/ML VIAL SC SCH (06:52)
[2016-08-09 06:55] LABS: Dohle Bodies 1+; Eosinophil 3 % (0-3); Lymphocyte 24 % (20-51); Monocyte 3 % (0-9); Neutrophil 70 % (42-75); Neutrophil # 15.3 K/mm3 (1.3-6.0)
[2016-08-09 06:56] LABS: Anisocytosis 1+; Howell-Jolly Bodies 2+
[2016-08-09] MEDS: MEROPENEM 1 GM in NORMAL SALINE 100 ML IV SCH (07:19)
[2016-08-09] MEDS ORDERED: predniSONE 20 MG TABLET PO SCH (09:00)
--- NOTE | 2016-08-09 09:27 | DS ---
(1) Atelectasis of left lung Problem: Acute (2) Pulmonary infiltrate in left lung on chest x-ray Problem: Acute (3) Bronchospasm Problem: Acute (4) Diabetes Problem: Acute (5) UTI (urinary tract infection) Problem: Acute (6) CAD (coronary artery disease) Problem: Acute (7) Dementia Problem: Acute (8) Anxiety Problem: Acute (9) Depression Problem: Acute (10) Hyperlipidemia Problem: Chronic Qualifiers: Hyperlipidemia type: Mixed hyperlipidemia (11) Hypertension Problem: Chronic Qualifiers: Hypertension type: essential hypertension Qualified Code(s): I10 - Essential (primary) hypertension Description of Stay: Date of admission: 07/30/16 Date of discharge: 08/09/16 Description of stay: Shobha Gutiérrez, is an 86-year-old WM with a H/O HTN, DM, CAD with PTCA to CX , LAD [1996] and stent to LAD[1997], HLD, anxiety and depression, GERD, OA, mild dementia who came into the ER on 07/29/2016 because of SOB, wheezing and increasing confusion. CXR showed RT perihilar opacity / lymphadenopathy / increased vascularity. This was followed by chest CT per PE protocol - 3.5 cm x 3.5 cm nodular pulmonary opacity in superior segment in RIGHT LOWER LOBE. Pt d/cody on levofloxin 500 mg PO daily and breathing treatmentson 07/29/16; became worse and admitted on 03/06. Also had a UTI. patient was started on levaquin 500 mg iv daily and received 5 doses. on day #6, and after a worsening clinical picture, the patient was changed to azithromycin 500 mg iv daily and rocephin 1 gm iv daily. she received these antibiotics until 08/06/16 when a cxr was done that showed worsening infiltrate. At this point she was continued on azithromycin 500 mg daily but started meropenem 1 gm q 8 hours. the patient also received 5 days of iv steroids before changing to oral steroids. In addition, she received budenoside and duoneb/albuterol breathing treatment. Procedures Performed: none Discharge Disposition: Home Health Care at the [facility] Disposition: [facility] Condition: Undetermined Discharge Activity: Activity as tolerated Discharge Diet: Consistent carbs Referrals: Shari Kohli MD [Primary Care Provider] - Problem Oriented Discharge Instructions to Patient/Family: Atelectasis, Adult, Community-Acquired Pneumonia, Adult, [id number] Additional Patient Instructions (free text): [facility], please call and fax discharge information to them. Please fax discharge information to [facility]. Continue to get up and move multiple times a day, everyday. New medications: - Prednisone 20 mg daily for 2 days - Start 08/10/16 - Azithromycin 500 mg daily for 2 days - Start 08/10/16 - Probiotic OTC 2 times a day Humalog Insulin Dose: - Breakfast: 10 mg - Lunch: 10 mg - Supper: [address] Follow up with Dr. Kohli in 3 weeks. 08/30 at 11:30 Will need a Chest xray prior to your appointment Prescriptions (Any new or edited meds): Azithromycin [Zithromax] 500 mg PO DAILY #2 tab predniSONE [Prednisone] 20 mg PO DAILY #2 tablet Complete Home Medications List: Complete Home Medication List: ALPRAZolam [Xanax] 0.25 mg PO BID PRN 12/24/15 Acetaminophen [Tylenol] 1,000 mg PO Q6H PRN 12/24/15 Albuterol Sulfate/Ipratropium [Duoneb 2.5-0.5MG/3ML Soln] 3 ml IH QID PRN Cholecalciferol (Vitamin D3) [Vitamin D3] 2,000 unit PO DAILY 12/24/15 Clopidogrel Bisulfate [Plavix] 75 mg PO DAILY 12/24/15 Escitalopram Oxalate [Lexapro] 10 mg PO DAILY 12/24/15 Gabapentin 300 mg PO DAILY 12/24/15 Gabapentin [Neurontin] 600 mg PO HS 12/24/15 Insulin Glargine,Hum.rec.anlog [Lantus] 28 unit SQ BID 12/24/15 Losartan Potassium [Cozaar] 50 mg PO HS 12/24/15 Memantine HCl 10 mg PO BID 12/24/15 Nitroglycerin [Nitrostat] 0.4 mg SL Q5MIN PRN 12/24/15 Pravastatin Sodium [Pravachol] 40 mg PO DAILY 12/24/15 Albuterol Sulfate [Proair Hfa] 2 puff IH QID PRN 07/29/16 Azithromycin [Zithromax] 500 mg PO DAILY #2 tab 08/09/16 Insulin Lispro [Humalog] 0 units SC ACINS vial 08/09/16 Saccharomyces Boulardii [Florastor] 250 mg PO BID capsule 08/09/16 predniSONE [Prednisone] 20 mg PO DAILY #2 tablet 08/09/16 Amb Orders for Discharge: Chest PA & Lateral * Time Frame: 3 Weeks, Location: Determined By Patient
[2016-08-09] MEDS: MEMANTINE HCL 10 MG TABLET PO SCH (10:14)
[2016-08-09] MEDS: ESCITALOPRAM OXALATE 10 MG TAB PO SCH (10:14)
[2016-08-09] MEDS: SACCHAROMYCES BOULARDII 250 MG CAPSULE PO SCH (10:14)
[2016-08-09] MEDS: CLOPIDOGREL BISULFATE 75 MG TABLET PO SCH (10:14)
[2016-08-09] MEDS: GABAPENTIN 300 MG CAPSULE PO SCH (10:14)
[2016-08-09] MEDS: INSULIN GLARGINE,HUM.REC.ANLOG 100 UNITS/ML VIAL SC SCH (10:15)
[2016-08-09] MEDS: PRAVASTATIN SODIUM 40 MG PO SCH (10:15)
[2016-08-09] MEDS: CHOLECALCIFEROL 1,000 UNIT CAPSULE PO SCH (10:15)
== END 2016-08-09 11:25 | disposition home health service (06) | DRG 206 ==
LOC: ER 07:30 → MS 08:16 → OBSVTOIN 08:16
PROVIDERS: ADMIT Internal Medicine; ATTEND Internal Medicine
DX: J98.11 Atelectasis (principal); N39.0 Urinary tract infection, site not specified; J98.01 Acute bronchospasm; R91.8 Other nonspecific abnormal finding of lung field; I10 Essential (primary) hypertension; I25.10 Atherosclerotic heart disease of native coronary artery without angina pectoris; E78.2 Mixed hyperlipidemia; E11.9 Type 2 diabetes mellitus without complications; B96.20 Unspecified Escherichia coli [E. coli] as the cause of diseases classified elsewhere; Z79.4 Long term (current) use of insulin; Z95.5 Presence of coronary angioplasty implant and graft

== ENCOUNTER 2016-09-14 09:52 | Emergency (ER) | payer MEDICARE, BC ==
[2016-09-14] MEDS ORDERED: ALBUTEROL SULFATE/IPRATROPIUM 3 ML NEBU IH ONE ×5 (10:00→10:58)
--- OUTSIDE RECORDS SUMMARY | 2016-09-14 10:06 | XMS REPORT | Continuity of Care Document ---
:1930 Author Organization [facility] [employer] [place] [address] Care Team Providers Name Role Phone Unavailable Primary Care Provider Unavailable Source Comments This disclosure is being made pursuant to the [employer] program and maynot contain all information available regarding this patient.[facility] Active Allergies and Adverse Reactions Not on [...]
[2016-09-14] MEDS ORDERED: METHYLPREDNISOLONE SOD SUCC/PF 40 MG/ML VIAL IV ONE (10:08)
[2016-09-14 10:23] LABS: Hematocrit 42.7 % (37.0-47.0); Hemoglobin 13.8 gm/dL (12.5-16.0); Mean Cell Volume 89.3 fl (78-100); Mean Corpuscular Hemoglobin 28.9 pg (27-31); Mean Corpuscular Hgb Conc 32.3 g/dl (32-36); Mean Platelet Volume 10.7 fl (6.0-9.5); Neutrophil # 9.9 K/mm3 (1.3-6.0); Neutrophil % 66.1 % (42-75.0); Platelet Count 345 K/mm3 (150-450); Red Blood Count 4.78 M/mm3 (4.2-5.4); White Blood Count 14.9 K/mm3 (4.0-10.5)
[2016-09-14] MEDS ORDERED: METHYLPREDNISOLONE SOD SUCC/PF 125 MG/2 ML VIAL ONE (10:40)
[2016-09-14 10:46] LABS: Troponin I Less than 0.017 ng/ml (0.00-0.10)
--- NOTE | 2016-09-14 10:52 | ERNOTE ---
Dyspnea - General Time Seen by Provider: 09/14/16 09:57 Source: patient, family - Immun/Allergies/Home Medications Immunizations: IMMUNIZATION HX Immunizations Up to Date Yes History of Influenza Vaccine Yes Hx Pneumococcal Vaccination Yes Allergies/Adverse Reactions: Allergies atorvastatin calcium [From Lipitor] Allergy (Verified 09/14/16 10:03) codeine [Codeine] Allergy (Verified 09/14/16 10:03) estrogens, conjugated [From Premarin] Allergy (Verified 09/14/16 10:03) metformin Allergy (Verified 09/14/16 10:03) nitrofurantoin macrocrystalline [From Macrodantin] Allergy (Verified 09/14/16 10 :03) Penicillins Allergy (Verified 09/14/16 10:03) sulfamethoxazole [From Bactrim] Allergy (Verified 09/14/16 10:03) trimethoprim [From Bactrim] Allergy (Verified 09/14/16 10:03) lactose Adverse Reaction (Verified 09/14/16 10:17) simvastatin [From Zocor] Adverse Reaction (Verified 09/14/16 10:03) Home Medications: HOME MEDICATIONS ALPRAZolam [Xanax] 0.25 mg PO HS PRN 12/24/15 [Last Taken Unknown] Acetaminophen [Tylenol] 1,000 mg PO Q6H PRN 12/24/15 [Last Taken Unknown] Albuterol Sulfate/Ipratropium [Duoneb 2.5-0.5MG/3ML Soln] 3 ml IH QID PRN [Last Taken Unknown] Cholecalciferol (Vitamin D3) [Vitamin D3] 2,000 unit PO DAILY 12/24/15 [Last Taken Unknown] Clopidogrel Bisulfate [Plavix] 75 mg PO DAILY 12/24/15 [Last Taken Unknown] Escitalopram Oxalate [Lexapro] 10 mg PO DAILY 12/24/15 [Last Taken Unknown] Gabapentin 300 mg PO DAILY 12/24/15 [Last Taken Unknown] Gabapentin [Neurontin] 600 mg PO HS 12/24/15 [Last Taken Unknown] Insulin Glargine,Hum.rec.anlog [Lantus] 28 unit SQ BID 12/24/15 [Last Taken Unknown] Losartan Potassium [Cozaar] 50 mg PO HS 12/24/15 [Last Taken Unknown] Memantine HCl 10 mg PO BID 12/24/15 [Last Taken Unknown] Nitroglycerin [Nitrostat] 0.4 mg SL Q5MIN PRN 12/24/15 [Last Taken Unknown] Pravastatin Sodium [Pravachol] 40 mg PO DAILY 12/24/15 [Last Taken Unknown] Albuterol Sulfate [Proair Hfa] 2 puff IH QID PRN 07/29/16 [Last Taken Unknown] Insulin Lispro [Humalog] 0 units SC ACINS vial 08/09/16 [Last Taken Unknown] Albuterol Sulfate [Proair Hfa] 1 - 2 puff IH Q4H PRN #1 inhaler 09/14/16 [Last Taken Unknown] Alprazolam [Xanax] 0.25 mg PO BID PRN 09/14/16 [Last Taken Unknown] Azithromycin [Zithromax] 250 mg PO DAILY #6 tablet 09/14/16 [Last Taken Unknown] Docusate Sodium [Doc-Q-Lace] 100 mg PO DAILY 09/14/16 [Last Taken Unknown] Pantoprazole Sodium [Protonix] 40 mg PO DAILY 09/14/16 [Last Taken Unknown] Saccharomyces Boulardii [Florastor] 250 mg PO BID 09/14/16 [Last Taken Unknown] - History of Present Illness Narrative: She is brought in via ambulance from the [facility] for progressive shortness of breath over the past 48 hours. Patient denies any chest pains or fevers she does state that she has had a cough and that she feels short of breath. She was given a breathing treatment at the [facility] with no improvement of her condition. Does have a history of frequent bronchitic disease. Review of Systems - Review of Systems Constitutional: Present: fatigue EYE: Present: no symptoms reported ENT: Present: no symptoms reported Respiratory: Present: cough Cardiology: Present: no symptoms reported Gastrointestinal/Abdominal: Present: no symptoms reported Genitourinary: Present: no symptoms reported Musculoskeletal: Present: no symptoms reported Skin: Present: no symptoms reported Neurological: Present: no symptoms reported - Patient's Past Medical History Patient History - Medical: Diabetes Type 2, GERD, Other Patient History - Cardiac/Respiratory: Coronary Heart Disease, CHF, COPD, Hypertension, Hyperlipidemia, Pneumonia, Other Patient History - Cancer: No Hx of Cancer Patient History - Surgical Procedures: Appendectomy, Cardiac stent, Hysterectomy , Other Patient History - Other: None - Family History Mother Family History - Medical: Family History - Cardiac/Respiratory: CVA/Stroke Father Family History - Medical: , Diabetes Type 2 Family History - Cardiac/Respiratory: Hypertension, Hyperlipidemia, Myocardial Infarction Family History - Cancer: No pertinent family hx - Social History Living Situations: assisted living Abuse History: No History of abuse Psych History: Hx of Anxiety Smoking Status: Never smoker Have you smoked in the past 12 months: No Alcohol Use: none Drug Use: benzodiazepine - Immunizations Immunizations Up to Date: Yes Hx Pneumococcal Vaccination: Yes History of Influenza Vaccine: Yes Physical Exam - Physical Exam General Appearance: Present: wd/wn, mild distress, other - Chin has mild respiratory distress with audible wheezes without a stethoscope. Ears, Nose, Throat: Present: normal ENT inspection, normal pharynx Neck: Present: normal inspection, nontender Respiratory: Present: respiratory distress, other - patient has rapid respirations she has audible wheezes she has decreased breath sounds at both bases with expiratory wheezes in the upper lung zones 2 saturation is 93% on room air Cardiovascular/Chest: Present: regular rate, rhythm, no murmur, normal peripheral pulses Extremity Exam: Present: normal inspection Neurological Exam: Present: alert ED Progress - Results and Orders Patient's Lab Results:: I have reviewed the patient's lab results. - Vital Signs Patient's Vital Signs:: I have reviewed the patient's vital signs. Vital Signs: Vital Signs 09/14/16 09/14/16 09/14/16 09:57 10:00 10:03 Temperature 36.8 C Pulse Rate 80 80 76 Respiratory 20 22 H Rate Blood Pressure 147/77 O2 Sat by Pulse 92 94 Oximetry 09/14/16 09/14/16 10:07 10:41 Temperature Pulse Rate 77 75 Respiratory 22 H 119 H Rate Blood Pressure 127/67 O2 Sat by Pulse 93 99 Oximetry - X-Ray X-Ray #1 X-Ray: chest - Progress/Reassessment Chief Complaint: Dyspnea Plan - Plan Plan: Patient's white count is slightly elevated at 14.9, her chest x-ray does not reveal a consolidation however it is more consistent with a bronchitic pattern. The patient will be treated for orchitis and discharged to the [facility]. Departure Clinical Impression: Bronchitis - Departure Disposition: [facility] Condition: Fair Instructions: Acute Bronchitis, [id number] Referrals: Shari Kohli MD [Primary Care Provider] - Prescriptions: Albuterol Sulfate [Proair Hfa] 1 - 2 puff IH Q4H PRN #1 inhaler PRN Reason: Shortness Of Breath Azithromycin [Zithromax] 250 mg PO DAILY #6 tablet
[2016-09-14 11:05] LABS: ALT 16 U/L (19-67); AST 15 U/L (0-48); Albumin * 3.1 gm/dl (3.4-5.0); Alkaline Phosphatase * 97 U/L (50-170); Anion Gap 13.3 mmol/L (6.8-13.8); BNP * 248 pg/mL (5-550); BUN/Creatinine Ratio 8.8 (9.0-21.6); Bilirubin, Total 0.5 mg/dL (0.0-1.1); Blood Urea Nitrogen 8 mg/dL (3-23); CK Total * 54 U/L (0-259); CKMB 1.9 ng/mL (0.0-9.0); Ca. Corrected For Albumin 9.5 mg/dL (8.4-10.2); Calcium * 9.1 mg/dL (7.9-10.9); Carbon Dioxide 28.3 mmol/L (24-32.6); Chloride 103 mmol/L (97-106); Glucose * 195 mg/dL (70-110); Potassium 3.6 mmol/L (3.4-4.6); Sodium 141 mmol/L (132-142); Total Protein 7.1 gm/dL (6.2-8.2)
[2016-09-14 11:51] VITALS: BP 111/60
== END 2016-09-14 11:49 ==
LOC: ER 09:52
PROC: 4A033R1 Measurement of Arterial Saturation, Peripheral, Percutaneous Approach (ICD-10-PCS; principal; 2016-09-14)
DX: J40 Bronchitis, not specified as acute or chronic (principal); Z95.5 Presence of coronary angioplasty implant and graft; E11.9 Type 2 diabetes mellitus without complications; Z79.4 Long term (current) use of insulin; J44.9 Chronic obstructive pulmonary disease, unspecified; K21.9 Gastro-esophageal reflux disease without esophagitis; E78.5 Hyperlipidemia, unspecified; I10 Essential (primary) hypertension; I50.9 Heart failure, unspecified; F41.9 Anxiety disorder, unspecified

== ENCOUNTER 2017-03-08 22:52 | Inpatient (IN) | payer MEDICARE, BC ==
[2017-03-08] MEDS ORDERED: ONDANSETRON HCL/PF 2 MG/ML VIAL ONE (23:08)
[2017-03-08] MEDS ORDERED: ONDANSETRON HCL/PF 2 MG/ML VIAL IV ONE (23:08)
[2017-03-08] MEDS ORDERED: NORMAL SALINE 1,000 ML IV ONE (23:11)
--- NOTE | 2017-03-08 23:14 | ERNOTE ---
Chest Pain/Cardiac HPI Time Seen by Provider: 03/08/17 22:59 Source: patient, long term records Exam Limitations: no limitations Immunizations: IMMUNIZATION HX Immunizations Up to Date Yes History of Influenza Vaccine Yes Hx Pneumococcal Vaccination Yes Allergies/Adverse Reactions: Allergies atorvastatin calcium [From Lipitor] Allergy (Verified 03/08/17 23:02) codeine [Codeine] Allergy (Verified 03/08/17 23:02) estrogens, conjugated [From Premarin] Allergy (Verified 03/08/17 23:02) metformin Allergy (Verified 03/08/17 23:02) nitrofurantoin macrocrystalline [From Macrodantin] Allergy (Verified 03/08/17 23 :02) Penicillins Allergy (Verified 03/08/17 23:02) sulfamethoxazole [From Bactrim] Allergy (Verified 03/08/17 23:02) trimethoprim [From Bactrim] Allergy (Verified 03/08/17 23:02) lactose Adverse Reaction (Verified 03/08/17 23:02) simvastatin [From Zocor] Adverse Reaction (Verified 03/08/17 23:02) Home Medications: HOME MEDICATIONS ALPRAZolam [Xanax] 0.25 mg PO HS PRN 12/24/15 [Last Taken Unknown] Acetaminophen [Tylenol] 1,000 mg PO Q6H PRN 12/24/15 [Last Taken Unknown] Albuterol Sulfate/Ipratropium [Duoneb 2.5-0.5MG/3ML Soln] 3 ml IH QID PRN [Last Taken Unknown] Cholecalciferol (Vitamin D3) [Vitamin D3] 2,000 unit PO DAILY 12/24/15 [Last Taken Unknown] Clopidogrel Bisulfate [Plavix] 75 mg PO DAILY 12/24/15 [Last Taken Unknown] Escitalopram Oxalate [Lexapro] 10 mg PO DAILY 12/24/15 [Last Taken Unknown] Gabapentin 300 mg PO DAILY 12/24/15 [Last Taken Unknown] Gabapentin [Neurontin] 600 mg PO HS 12/24/15 [Last Taken Unknown] Insulin Glargine,Hum.rec.anlog [Lantus] 28 unit SQ BID 12/24/15 [Last Taken Unknown] Losartan Potassium [Cozaar] 50 mg PO HS 12/24/15 [Last Taken Unknown] Memantine HCl 10 mg PO BID 12/24/15 [Last Taken Unknown] Nitroglycerin [Nitrostat] 0.4 mg SL Q5MIN PRN 12/24/15 [Last Taken Unknown] Pravastatin Sodium [Pravachol] 40 mg PO DAILY 12/24/15 [Last Taken Unknown] Albuterol Sulfate [Proair Hfa] 2 puff IH QID PRN 07/29/16 [Last Taken Unknown] Insulin Lispro [Humalog] 0 units SC ACINS vial 08/09/16 [Last Taken Unknown] Albuterol Sulfate [Proair Hfa] 1 - 2 puff IH Q4H PRN #1 inhaler 09/14/16 [Last Taken Unknown] Alprazolam [Xanax] 0.25 mg PO BID PRN 09/14/16 [Last Taken Unknown] Azithromycin [Zithromax] 250 mg PO DAILY #6 tablet 09/14/16 [Last Taken Unknown] Docusate Sodium [Doc-Q-Lace] 100 mg PO DAILY 09/14/16 [Last Taken Unknown] Pantoprazole Sodium [Protonix] 40 mg PO DAILY 09/14/16 [Last Taken Unknown] Saccharomyces Boulardii [Florastor] 250 mg PO BID 09/14/16 [Last Taken Unknown] Narrative: chest pain this evening at the [place]. Timing: resolved prior to arrival Severity/Quality: moderate, pressure Location: substernal Chest Pain Radiation: no radiation Activities at Onset: rest Nitro Today/Relief: no nitro taken today Aspirin Treatment Today: 81 mg x 4, provided by EMS Associated Symptoms: Present: shortness of breath Prior Chest Pain/Cardiac Workup: Reports: prior chest pain, cardiac cath Review of Systems - Review of Systems Constitutional: Absent: fever, chills EYE: Present: no symptoms reported ENT: Present: no symptoms reported Respiratory: Present: shortness of breath, wheezing Cardiology: Present: See HPI Gastrointestinal/Abdominal: Present: nausea Genitourinary: Present: no symptoms reported Musculoskeletal: Present: no symptoms reported Skin: Absent: rash Neurological: Present: no symptoms reported Endocrine: Absent: excessive sweating, flushing Hematologic/Lymphatic: Absent: easy bruising Psych: Present: no symptoms reported - Patient's Past Medical History Patient History - Medical: Diabetes Type 2, GERD, Other Patient History - Cardiac/Respiratory: Coronary Heart Disease, CHF, COPD, Hypertension, Hyperlipidemia, Pneumonia, Other Patient History - Cancer: No Hx of Cancer Patient History - Surgical Procedures: Appendectomy, Cardiac stent, Hysterectomy , Other Patient History - Other: None - Family History Mother Family History - Medical: Family History - Cardiac/Respiratory: CVA/Stroke Father Family History - Medical: , Diabetes Type 2 Family History - Cardiac/Respiratory: Hypertension, Hyperlipidemia, Myocardial Infarction Family History - Cancer: No pertinent family hx - Social History Abuse History: No History of abuse Psych History: Hx of Anxiety - Immunizations Immunizations Up to Date: Yes Hx Pneumococcal Vaccination: Yes History of Influenza Vaccine: Yes Physical Exam - Physical Exam General Appearance: Present: wd/wn, alert, mild distress Head Exam: Present: normal inspection, no evidence of injury Ears, Nose, Throat: Present: normal ENT inspection Neck: Present: normal inspection, nontender Respiratory: Present: no respiratory distress, wheezing - mild Cardiovascular/Chest: Present: regular rate, rhythm, systolic murmur - 2/6 Gastrointestinal/Abdominal: Present: normal bowel sounds, nontender, soft - multiple Extremity Exam: Present: normal inspection, no edema Neurological Exam: Present: alert, oriented, normal mood/affect, no motor/ sensory deficits Skin Exam: Present: normal color, warm/dry Lymphatic Exam: Present: no adenopathy ED Progress - Results and Orders Patient's Lab Results:: I have reviewed the patient's lab results. Results and Orders: Laboratory Tests 03/08/17 03/08/17 03/08/17 23:10 23:10 23:10 WBC 13.6 H Hgb 14.8 Hct 45.9 Plt Count 298 PT 10.7 INR (Anticoag Therapy) 1.07 PTT (Kiran) 25.0 Sodium 133 Potassium 3.9 Chloride 100 Carbon Dioxide 26.9 Anion Gap 10.0 BUN 17 D Creatinine 1.29 Est GFR (Non-Af Amer) 42 L D Random Glucose 288 H Calcium 8.8 Total Bilirubin 0.5 AST 17 ALT 21 Alkaline Phosphatase 106 Troponin I 0.150 H* Total Protein 7.5 Albumin 3.1 L - Vital Signs Patient's Vital Signs:: I have reviewed the patient's vital signs. - EKG EKG: unchanged from - 09/14/2016 EKG read: Interp. by me EKG Comments: atrial pacemaker, LBBB. - X-Ray X-Ray #1 X-Ray: chest Interpretation: Interp. by me X-ray Comments: No infiltrate or effusion. - Progress/Reassessment Progress Note-Subjective: 03/08/17 23:56 spoke with the patient and family about transfer to [facility] for further evaluation of elevated troponin. They made the decision that they would not want any further treatment even if this is a NSTEMI. She does not want to be transferred and would rather stay here for observation 03/09/17 00:35 Pt having some chest pressure, blood pressure 90/60. Morphine ordered, noticed codeine allergy, asked patient and family if she has had morphine before and she has had morphine without reaction. Spoke to Betzaida Levi about admission for COPD exacerbation and Troponin elevation, she agrees with admit Departure Clinical Impression: Acute exacerbation of chronic obstructive pulmonary disease (COPD), Elevated troponin - Departure Disposition: [facility] Condition: Fair
[2017-03-08 23:18] LABS: Hematocrit 45.9 % (37.0-47.0); Hemoglobin 14.8 gm/dL (12.5-16.0); Mean Cell Volume 89.1 fl (78-100); Mean Corpuscular Hemoglobin 28.7 pg (27-31); Mean Corpuscular Hgb Conc 32.2 g/dl (32-36); Mean Platelet Volume 10.5 fl (6.0-9.5); Neutrophil # 8.1 K/mm3 (1.3-6.0); Neutrophil % 59.5 % (42-75.0); Platelet Count 298 K/mm3 (150-450); Red Blood Count 5.15 M/mm3 (4.2-5.4); White Blood Count 13.6 K/mm3 (4.0-10.5)
[2017-03-08 23:27] LABS: Prothrombin Time (Patient) 10.7 Seconds (9.0-11.0)
[2017-03-08 23:31] LABS: INR 1.07 INR (0.90-1.10)
[2017-03-08 23:36] LABS: Albumin * 3.1 gm/dl (3.4-5.0); BUN/Creatinine Ratio 13.2 (9.0-21.6); Bilirubin, Total 0.5 mg/dL (0.0-1.1); Ca. Corrected For Albumin 9.2 mg/dL (8.4-10.2); Calcium * 8.8 mg/dL (7.9-10.9); Carbon Dioxide 26.9 mmol/L (24-32.6); Potassium 3.9 mmol/L (3.4-4.6); Total Protein 7.5 gm/dL (6.2-8.2)
[2017-03-08 23:37] LABS: Troponin I 0.15 ng/ml (0.00-0.10)
[2017-03-09] MEDS ORDERED: MORPHINE SULFATE 2 MG/ML DISP.SYRIN ONE (00:13)
[2017-03-09] MEDS ORDERED: MORPHINE SULFATE 2 MG/ML DISP.SYRIN IV ONE (00:15)
[2017-03-09] MEDS ORDERED: PROCHLORPERAZINE EDISYLATE 5 MG/ML VIAL ONE (00:20)
[2017-03-09] MEDS ORDERED: PROCHLORPERAZINE EDISYLATE 5 MG/ML VIAL IV ONE (00:22)
[2017-03-09] MEDS ORDERED: LEVOFLOXACIN IN DEXTROSE 5 % 750 MG/150 ML BAG IV ONE (00:42)
--- NOTE | 2017-03-09 02:10 | HP ---
Chief Complaint - Chief Complaint Date of Service: 03/09/17 Time of Service: 02:04 Chief Complaint: chest pain ,shortness of breath History of Present Illness: 87 years old white female adm to the hospital from assisted living facility with report of chest pressure and shortness of breath. Per family pt was seen on Tuesday by PCP for her regular check up. PMH hypertension, pneumonia,pacemaker ,hyperlipidemia, diabetes and SD with stents. pt stated while at assisted living facility the pain was intense, but when EMS got there pain had self resolved. While in ER, she had chest pain that later resolved with morphine. In ER troponin elevated 0.150 family refused further interventions or transfer to [facility]. While On Med-surg POA and other relatives request for pt to be comfortable and will decide their plan after she is seen by PCP. Plan of care discussed with pt and family they verbalized understanding and agrees. - Patient's Past Medical History Patient History - Medical: Diabetes Type 2, GERD, Other Patient History - Cardiac/Respiratory: Coronary Heart Disease, CHF, Hypertension , Hyperlipidemia, Pneumonia, Other Patient History - Cancer: No Hx of Cancer Patient History - Surgical Procedures: Appendectomy, Cardiac stent, Hysterectomy , Other Patient History - Other: None LMP (females 10-50): post menopausal - Family History Mother Family History - Medical: Family History - Cardiac/Respiratory: CVA/Stroke Family History - Cancer: No pertinent family hx Father Family History - Medical: , Diabetes Type 2 Family History - Cardiac/Respiratory: Hypertension, Hyperlipidemia, Myocardial Infarction Family History - Cancer: No pertinent family hx - Social History Living Situations: assisted living Abuse History: No History of abuse Psych History: Hx of Anxiety Smoking Status: Never smoker Have you smoked in the past 12 months: No Do you dip or chew tobacco: No Alcohol Use: none Drug Use: none - Immunizations Immunizations Up to Date: Yes Hx Pneumococcal Vaccination: Yes History of Influenza Vaccine: Yes Review Of Systems (GEN) - Review of Systems Generalized/Overall Review: Present: No Symptoms Reported EENTM: Present: No Symptoms Reported Respiratory: Present: Shortness of Breath Cardiac: Present: Chest Pain Abdominal: Present: Nausea Genitourinary: Present: No Symptoms Reported Musculoskeletal: Present: No Symptoms Reported Neurological: Present: No Symptoms Reported Skin: Present: No Symptoms Reported Endocrine: Present: No Symptoms Reported Immunizations: IMMUNIZATION HX Immunizations Up to Date Yes History of Influenza Vaccine Yes Hx Pneumococcal Vaccination Yes Allergies/Adverse Reactions: Allergies Allergy/AdvReac Type Severity Reaction Status Date / Time atorvastatin calcium Allergy Verified 03/08/17 23:02 [From Lipitor] codeine [Codeine] Allergy Verified 03/08/17 23:02 estrogens, conjugated Allergy Verified 03/08/17 23:02 [From Premarin] metformin Allergy Verified 03/08/17 23:02 nitrofurantoin Allergy Verified 03/08/17 23:02 macrocrystalline [From Macrodantin] Penicillins Allergy Verified 03/08/17 23:02 sulfamethoxazole Allergy Verified 03/08/17 23:02 [From Bactrim] trimethoprim [From Bactrim] Allergy Verified 03/08/17 23:02 lactose AdvReac Verified 03/08/17 23:02 simvastatin [From Zocor] AdvReac Verified 03/08/17 23:02 Home Medications: HOME MEDICATIONS ALPRAZolam [Xanax] 0.25 mg PO HS PRN 12/24/15 [Last Taken Unknown] Acetaminophen [Tylenol] 1,000 mg PO Q6H PRN 12/24/15 [Last Taken Unknown] Albuterol Sulfate/Ipratropium [Duoneb 2.5-0.5MG/3ML Soln] 3 ml IH QID PRN [Last Taken Unknown] Cholecalciferol (Vitamin D3) [Vitamin D3] 2,000 unit PO DAILY 12/24/15 [Last Taken Unknown] Clopidogrel Bisulfate [Plavix] 75 mg PO DAILY 12/24/15 [Last Taken Unknown] Escitalopram Oxalate [Lexapro] 10 mg PO DAILY 12/24/15 [Last Taken Unknown] Gabapentin 300 mg PO QAM 12/24/15 [Last Taken Unknown] Gabapentin [Neurontin] 600 mg PO HS 12/24/15 [Last Taken Unknown] Insulin Glargine,Hum.rec.anlog [Lantus] 28 unit SQ BID 12/24/15 [Last Taken Unknown] Losartan Potassium [Cozaar] 50 mg PO HS 12/24/15 [Last Taken Unknown] Nitroglycerin [Nitrostat] 0.4 mg SL Q5MIN PRN 12/24/15 [Last Taken Unknown] Pravastatin Sodium [Pravachol] 40 mg PO DAILY 12/24/15 [Last Taken Unknown] Alprazolam [Xanax] 0.25 mg PO BID PRN 09/14/16 [Last Taken Unknown] Docusate Sodium [Doc-Q-Lace] 100 mg PO DAILY 09/14/16 [Last Taken Unknown] Pantoprazole Sodium [Protonix] 40 mg PO DAILY 09/14/16 [Last Taken Unknown] Saccharomyces Boulardii [Florastor] 250 mg PO BID 09/14/16 [Last Taken Unknown] Albuterol Sulfate [Proair Hfa] 2 puff IH Q4H PRN 03/09/17 [Last Taken Unknown] Insulin Aspart [Novolog] 6 units SC TIDWM 03/09/17 [Last Taken Unknown] Exam - Exam Vital Signs: Vital Signs - Last Taken Temp 36.3 C L 03/09/17 00:36 Pulse 68 03/09/17 00:44 Resp 23 H 03/09/17 00:44 BP 108/76 03/09/17 00:44 Pulse Ox 85 L 03/09/17 00:44 Constitutional: Present: Alert, Oriented x3, Cooperative, Mild distress, Obese ENT Exam: Present: hearing grossly normal Eye Exam: bilateral eye: normal inspection Neck: Present: full range of motion Back Exam: Present: normal inspection Breasts: Present: Exam deferred Respiratory: Present: respiratory distress, decreased breath sounds, rhonchi Cardiovascular/Chest: Present: normal peripheral pulses, chest tender Peripheral Pulses: dorsalis-pedis (R): 3+, dorsalis-pedis (L): 3+ Abdomen: Present: Normal bowel sounds, soft, nontender, nondistended /Rectal: Present: Exam deferred Extremity: Present: normal range of motion, normal inspection, no pedal edema, no calf tenderness Skin Exam: Present: warm/dry Neurologic: Present: oriented x 3 Appearance: Present: appropriate appearance Thoughts: Present: normal thought pattern Diagnostic Studies: Laboratory Results WBC 13.6 K/mm3 (4.0-10.5) H 03/08/17 23:10 RBC 5.15 M/mm3 (4.2-5.4) 03/08/17 23:10 Hgb 14.8 gm/dL (12.5-16.0) 03/08/17 23:10 Hct 45.9 % (37.0-47.0) 03/08/17 23:10 MCV 89.1 fl (78-100) 03/08/17 23:10 MCH 28.7 pg (27-31) 03/08/17 23:10 MCHC 32.2 g/dl (32-36) 03/08/17 23:10 RDW 15.0 % (11.5-14.0) H 03/08/17 23:10 Plt Count 298 K/mm3 (150-450) 03/08/17 23:10 MPV 10.5 fl (6.0-9.5) H 03/08/17 23:10 Immature Gran % (Auto) 0.40 % (0.001-0.429) 03/08/17 23:10 Immature Gran # (Auto) 0.05 K/mm3 (0.000-0.0310) H 03/08/17 23:10 Neutrophils % 59.5 % (42-75.0) 03/08/17 23:10 Lymphocytes % 26.5 % (20-51) 03/08/17 23:10 Monocytes % 8.5 % (0.0-9) 03/08/17 23:10 Eosinophils % 3.8 % (0.0-3.0) H 03/08/17 23:10 Basophils % 1.3 % (0.0-1.0) H 03/08/17 23:10 Nucleated RBC % 0.0 k/mm3 (0-1) 03/08/17 23:10 Neutrophils # 8.1 K/mm3 (1.3-6.0) H 03/08/17 23:10 Lymphocytes # 3.6 k/mm3 (1.5-3.5) H 03/08/17 23:10 Monocytes # 1.2 k/mm3 (0.0-1.0) H 03/08/17 23:10 Eosinophils # 0.5 k/mm3 (0.0-0.7) 03/08/17 23:10 Absolute Basophils 0.2 k/mm3 (0.0-0.1) H 03/08/17 23:10 PT 10.7 Seconds (9.0-11.0) 03/08/17 23:10 INR (Anticoag Therapy) 1.07 INR (0.90-1.10) 03/08/17 23:10 PTT ([place]) 25.0 Seconds (24-32) 03/08/17 23:10 Sodium 133 mmol/L (132-142) 03/08/17 23:10 Plasma Sodium 136 mmol/L (130-142) 03/08/17 23:10 Potassium 3.9 mmol/L (3.4-4.6) 03/08/17 23:10 Chloride 100 mmol/L (97-106) 03/08/17 23:10 Carbon Dioxide 26.9 mmol/L (24-32.6) 03/08/17 23:10 Anion Gap 10.0 mmol/L (6.8-13.8) 03/08/17 23:10 BUN 17 mg/dL (3-23) D 03/08/17 23:10 Creatinine 1.29 mg/dL (0.4-1.4) 03/08/17 23:10 Est GFR (Non-Af Amer) 42 mL/min (60-130) L D 03/08/17 23:10 BUN/Creatinine Ratio 13.2 (9.0-21.6) 03/08/17 23:10 Random Glucose 288 mg/dL (70-110) H 03/08/17 23:10 Calcium 8.8 mg/dL (7.9-10.9) 03/08/17 23:10 Calcium Adj for Albumin 9.2 mg/dL (8.4-10.2) 03/08/17 23:10 Total Bilirubin 0.5 mg/dL (0.0-1.1) 03/08/17 23:10 AST 17 U/L (0-48) 03/08/17 23:10 ALT 21 U/L (19-67) 03/08/17 23:10 Alkaline Phosphatase 106 U/L (50-170) 03/08/17 23:10 Troponin I 0.150 ng/ml (0.00-0.10) H* 03/08/17 23:10 Total Protein 7.5 gm/dL (6.2-8.2) 03/08/17 23:10 Albumin 3.1 gm/dl (3.4-5.0) L 03/08/17 23:10 Assessment/Plan - Narrative Narrative: ? ACS- pt with extensive cardiac history Family request no aggressive interventions and refused transfer to [facility] On adm Elevated troponin 0.150----> Monitor on telemetry during adm Supplemented oxygen keep sat >90% morphine and Nitro tab as schedule Aspirin was given by EMS Initiate beta florinda Hypoxic / respiratory failure on adm Spo2 83% while on room air supplemented oxygen with spo2 84% on 6L nasal cannula Suspect URI vs pneumonia On adm WBC 13.6, pt reports of non productive cough continue with neb treatment supplemented oxygen Continue with antibiotic code status: DNR VTE ppx SCD GI ppx: protonix Time 50 minutes previous documents reviewed and case discussed with Dr. Kohli - Assessment/Plan (1) Elevated troponin Problem: Acute (2) CAD (coronary artery disease) Problem: Chronic (3) Dementia Problem: Chronic (4) Depression Problem: Chronic (5) Diabetes Problem: Chronic Qualifiers: Diabetes mellitus type: type 2 (6) GERD (gastroesophageal reflux disease) Problem: Chronic Qualifiers: (7) Hyperlipidemia Problem: Chronic (8) Hypertension Problem: Chronic Qualifiers:
[2017-03-09] MEDS ORDERED: ALBUTEROL SULFATE/IPRATROPIUM 3 ML NEBU IH PRN (02:27)
[2017-03-09] MEDS ORDERED: MORPHINE SULFATE 2 MG/ML DISP.SYRIN IV PRN (02:28)
[2017-03-09] MEDS ORDERED: NITROGLYCERIN 0.4 MG/TAB BTL SL PRN (02:42)
[2017-03-09] MEDS: LORazepam 2 MG/ML DISP.SYRIN IV SCH ×3 (02:56→06:25)
[2017-03-09] MEDS ORDERED: ONDANSETRON HCL/PF 2 MG/ML VIAL IV PRN (04:27)
[2017-03-09] MEDS ORDERED: ALBUTEROL SULFATE 200 PUFF INHALER IH PRN (04:27)
[2017-03-09] MEDS ORDERED: METOPROLOL SUCCINATE 25 MG TABLET.SA PO SCH (05:00)
[2017-03-09] MEDS ORDERED: ALBUTEROL SULFATE 2.5 MG/0.5 ML VIAL.NEB IH PRN (06:20)
[2017-03-09] MEDS ORDERED: LORazepam 2 MG/ML DISP.SYRIN IV PRN ×2 (07:02→08:40)
[2017-03-09] MEDS ORDERED: METOPROLOL SUCCINATE 25 MG TABLET.SA PO ONE (07:48)
[2017-03-09] MEDS: METOPROLOL SUCCINATE 25 MG TABLET.SA PO SCH ×2 (07:49→08:16)
[2017-03-09] MEDS ORDERED: NORMAL SALINE 1,000 ML IV PRN (08:40)
[2017-03-09] MEDS ORDERED: FLUMAZENIL 0.1 MG/ML VIAL IV ONE ×2 (08:49)
[2017-03-09] MEDS ORDERED: FLUMAZENIL 0.1 MG/ML VIAL IV PRN (08:54)
[2017-03-09] MEDS ORDERED: CLOPIDOGREL BISULFATE 75 MG TABLET PO SCH (09:00)
[2017-03-09] MEDS: GABAPENTIN 300 MG CAPSULE PO SCH (09:11)
[2017-03-09] MEDS: INSULIN ASPART 100 UNITS/ML VIAL SC SCH ×3 (09:11→17:39)
[2017-03-09] MEDS: INSULIN GLARGINE,HUM.REC.ANLOG 100 UNITS/ML VIAL SC SCH ×2 (09:11→20:15)
[2017-03-09] MEDS: DOCUSATE SODIUM 100 MG CAPSULE PO SCH (09:11)
[2017-03-09] MEDS: PANTOPRAZOLE SODIUM 40 MG TABLET.EC PO SCH (09:12)
[2017-03-09] MEDS ORDERED: CLOPIDOGREL BISULFATE 75 MG TABLET PO ONE (12:08)
[2017-03-09] MEDS: ROSUVASTATIN CALCIUM 20 MG TABLET PO SCH ×2 (12:41→20:20)
[2017-03-09] MEDS: ENOXAPARIN SODIUM 40 MG/0.4 ML SYRG SC SCH (17:39)
[2017-03-09] MEDS: GABAPENTIN 600 MG TABLET PO SCH (20:14)
[2017-03-09] MEDS: SIMVASTATIN 20 MG TABLET PO SCH (20:14)
[2017-03-09] MEDS ORDERED: ROSUVASTATIN CALCIUM 10 MG TABLET ONE (20:19)
[2017-03-09] MEDS ORDERED: LOSARTAN POTASSIUM 50 MG TABLET PO SCH (21:00)
[2017-03-10] MEDS ORDERED: FUROSEMIDE 10 MG/ML VIAL IV ONE ×2 (02:07→12:23)
[2017-03-10] MEDS: ALBUTEROL SULFATE/IPRATROPIUM 3 ML NEBU IH PRN ×2 (02:29→19:05)
[2017-03-10 06:02] LABS: Hematocrit 41.8 % (37.0-47.0); Hemoglobin 13.5 gm/dL (12.5-16.0); Mean Cell Volume 89.5 fl (78-100); Mean Corpuscular Hemoglobin 28.9 pg (27-31); Mean Corpuscular Hgb Conc 32.3 g/dl (32-36); Mean Platelet Volume 10.6 fl (6.0-9.5); Platelet Count 244 K/mm3 (150-450); Red Blood Count 4.67 M/mm3 (4.2-5.4); Red Cell Distribution Width 15.4 % (11.5-14.0); White Blood Count 15.8 K/mm3 (4.0-10.5)
[2017-03-10 06:08] LABS: Total Cells Counted 100
[2017-03-10 06:19] LABS: Atypical (Reactive) Lymph 10 % (0-2); Lymphocyte 11 % (20-51); Monocyte 9 % (0-9); Neutrophil 70 % (42-75); Neutrophil # 11.1 K/mm3 (1.3-6.0); Platelet Estimate Normal (NORMAL); RBC Morphology Normal (NORMAL)
[2017-03-10 06:22] LABS: Anion Gap 12.3 mmol/L (6.8-13.8); BUN/Creatinine Ratio 16.3 (9.0-21.6); Calcium * 8.9 mg/dL (7.9-10.9); Carbon Dioxide 25.1 mmol/L (24-32.6); Estimated Creat Clear 23.9; Potassium 4.4 mmol/L (3.4-4.6)
[2017-03-10] MEDS: GABAPENTIN 300 MG CAPSULE PO SCH (09:14)
[2017-03-10] MEDS: METOPROLOL SUCCINATE 25 MG TABLET.SA PO SCH ×2 (09:15→20:39)
[2017-03-10] MEDS: PANTOPRAZOLE SODIUM 40 MG TABLET.EC PO SCH (09:18)
[2017-03-10] MEDS: DOCUSATE SODIUM 100 MG CAPSULE PO SCH (09:18)
[2017-03-10] MEDS: INSULIN GLARGINE,HUM.REC.ANLOG 100 UNITS/ML VIAL SC SCH ×2 (09:28→20:39)
[2017-03-10] MEDS: INSULIN ASPART 100 UNITS/ML VIAL SC SCH ×3 (09:29→17:14)
[2017-03-10 11:16] LABS: Albumin * 2.8 gm/dl (3.4-5.0); Anion Gap 12.1 mmol/L (6.8-13.8); BUN/Creatinine Ratio 15.8 (9.0-21.6); Ca. Corrected For Albumin 9.2 mg/dL (8.4-10.2); Calcium * 8.6 mg/dL (7.9-10.9); Carbon Dioxide 26.3 mmol/L (24-32.6); Potassium 4.4 mmol/L (3.4-4.6)
[2017-03-10] MEDS: ENOXAPARIN SODIUM 40 MG/0.4 ML SYRG SC SCH (17:13)
[2017-03-10] MEDS ORDERED: MAG HYDROX/ALUMINUM HYD/SIMETH 30 ML UDC ONE (19:38)
[2017-03-10] MEDS ORDERED: LIDOCAINE HCL 20 ML UDC PO ONE (19:45)
[2017-03-10] MEDS ORDERED: MAG HYDROX/ALUMINUM HYD/SIMETH 148 ML BTL PO ONE (19:45)
[2017-03-10] MEDS ORDERED: BELLADONNA ALKALOIDS/PHENOBARB 60 ML BTL PO ONE (19:45)
[2017-03-10] MEDS: GABAPENTIN 600 MG TABLET PO SCH (20:39)
[2017-03-10] MEDS: ROSUVASTATIN CALCIUM 20 MG TABLET PO SCH (20:39)
[2017-03-10] MEDS: SIMVASTATIN 20 MG TABLET PO SCH (20:39)
[2017-03-11] MEDS: ALBUTEROL SULFATE/IPRATROPIUM 3 ML NEBU IH PRN (05:13)
[2017-03-11 06:21] LABS: Albumin * 2.7 gm/dl (3.4-5.0); BUN/Creatinine Ratio 15.3 (9.0-21.6); Bilirubin, Total 1.4 mg/dL (0.0-1.1); Ca. Corrected For Albumin 9.5 mg/dL (8.4-10.2); Calcium * 8.8 mg/dL (7.9-10.9); Carbon Dioxide 29.4 mmol/L (24-32.6); Potassium 3.4 mmol/L (3.4-4.6); Total Protein 6.9 gm/dL (6.2-8.2)
[2017-03-11] MEDS: ISOSORBIDE MONONITRATE 30 MG TAB.SR.24H PO SCH ×2 (09:46)
[2017-03-11] MEDS: PANTOPRAZOLE SODIUM 40 MG TABLET.EC PO SCH (09:47)
[2017-03-11] MEDS: LOSARTAN POTASSIUM 50 MG TABLET PO SCH (09:47)
[2017-03-11] MEDS: GABAPENTIN 300 MG CAPSULE PO SCH (09:48)
[2017-03-11] MEDS: DOCUSATE SODIUM 100 MG CAPSULE PO SCH (09:48)
[2017-03-11] MEDS: INSULIN GLARGINE,HUM.REC.ANLOG 100 UNITS/ML VIAL SC SCH ×3 (09:48→20:31)
[2017-03-11] MEDS: INSULIN ASPART 100 UNITS/ML VIAL SC SCH ×3 (09:49→18:29)
[2017-03-11] MEDS ORDERED: FUROSEMIDE 10 MG/ML VIAL IV ONE (10:15)
[2017-03-11] MEDS ORDERED: SPIRONOLACTONE 25 MG TABLET PO ONE (10:30)
[2017-03-11] MEDS: CLOPIDOGREL BISULFATE 75 MG TABLET PO SCH (10:33)
[2017-03-11] MEDS: ASPIRIN 81 MG TAB.CHEW PO SCH (11:37)
[2017-03-11] MEDS ORDERED: MORPHINE SULFATE 4 MG/ML SYRG IV ONE (16:05)
[2017-03-11] MEDS: IPRATROPIUM BROMIDE 0.5 MG/2.5 ML VIAL.NEB IH SCH ×2 (16:58→18:22)
[2017-03-11] MEDS: BUDESONIDE 0.5 MG/2 ML VIAL.NEB IH SCH ×2 (17:01→18:22)
[2017-03-11] MEDS: ENOXAPARIN SODIUM 40 MG/0.4 ML SYRG SC SCH (18:30)
[2017-03-11] MEDS ORDERED: BUDESONIDE 0.5 MG/2 ML VIAL.NEB IH SCH (19:00)
--- NOTE | 2017-03-11 19:48 | PN ---
Subjective - Date and Time Seen Date: 03/10/17 Time: 10:00 Subjective Narrative: patient lethargic, was given morphine sulfate/Ativan overnight to be kept comfortable.. She did respond well to flumazenil [Romazicon] and was more aware of her surroundings. c/o sob and chest pain. Objective - Review of Systems Cardiac: Reports: Chest Pain - and sob relieved by morphine sulphate. Abdominal: Denies: Nausea, Vomiting Neurological: Reports: Pre-existing Deficit - confused - not new - Vitals Vitals: Vital Signs Temp 36.3 C L 03/11/17 19:32 Pulse 75 03/11/17 19:32 Resp 20 03/11/17 19:32 BP 132/67 03/11/17 19:32 Pulse Ox 97 03/11/17 19:32 - Abnormal Lab Findings Abnormal Lab Findings: Laboratory Tests 03/10/17 05:57 WBC 15.8 H Hgb 13.5 Hct 41.8 Plt Count 244 03/09/17 03/10/17 03/11/17 05:35 05:56 05:57 Troponin I 0.373 H* 0.418 H* 0.444 H* - EKG/Xray Findings EKG read: Reviewed by me - NSR with non specific ST and T wave changes. - Exam Constitutional: Present: Elderly - alert, not oriented, cooperative. Respiratory: Present: no accessory muscle use - Bilateral wheezing, crackles and rhonchi in both lung yee. Cardiovascular/Chest: Present: regular rate, rhythm, systolic murmur - III/ at left sternal border Abdomen: Present: Normal bowel sounds, soft, nontender, obese Extremity: Present: lower extremity edema - 1+ Skin Exam: Present: normal color, warm/dry Assessment/Plan Plan Narrative: 1. CHEST PAIN: Initial troponin initially 0.150 gradually increasing to 0.444. No EKG changes. High troponin levels can be seen in other conditions including CHF, chronic cardiac conditions. Family would like the patient to be comfortable. At this point given her dementia that did not want her transferred to another facility for higher level of care or obtain a cardiology consult. Obtain echocardiogram for possible congestive heart failure/valvular problems. BNP 4752. Initial chest x-ray read as negative. Patient started on isosorbide mononitrate 15 mg daily. Patient was also given clopidogrel 300 mg 1 and Crestor 40 mg 1. 03/08/17 03/09/17 03/10/17 03/11/15 23:10 05:35 05:56 05:57 Troponin I 0.150 H* 0.373 H* 0.418 H* 0.444 H 2. T2 DM: Continue Lantus 28 units twice a day with sliding scale. 3. DEMENTIA WITH ANXIETY: Start MS Contin 10 mg at bedtime. 4. DVT prophylaxis: Lovenox 40 mg subcutaneous daily. CODE STATUS DNR. - Problems/Diagnosis (1) Chest pain Problem: Acute Qualifiers: Chest pain type: unspecified Qualified Code(s): R07.9 - Chest pain, unspecified (2) Dementia Problem: Chronic Qualifiers: Dementia type: unspecified type Dementia behavioral disturbance: without behavioral disturbance Qualified Code(s): F03.90 - Unspecified dementia without behavioral disturbance (3) Diabetes mellitus, type II Problem: Chronic Qualifiers: Diabetes mellitus complication status: with neurologic complications Diabetes mellitus long-term insulin use: with long-term use
--- NOTE | 2017-03-11 20:00 | PN ---
Subjective - Date and Time Seen Date: 03/11/17 Time: 19:50 Subjective Narrative: Patient has many complaints including headache[ isosorbide mononitrate started today], shortness of breath, occasional wheezing etc. She denied any chest pain today. Unable to ambulate and moves from bed to chair. CALIN is daughter [hospice nurse] who would like to keep her comfortable and had a minimum testing done. Unable to obtain accurate I's and O's as the patient is occasionally continent. Objective - Review of Systems Generalized/Overall Review: Reports: Weight gain Respiratory: Reports: Shortness of Breath, Wheezing Cardiac: Denies: Chest Pain, Edema, Palpitations Neurological: Reports: Anxiety - Vitals Vitals: Vital Signs Temp 36.3 C L 03/11/17 19:32 Pulse 75 03/11/17 19:32 Resp 20 03/11/17 19:32 BP 132/67 03/11/17 19:32 Pulse Ox 97 03/11/17 19:32 - Abnormal Lab Findings Abnormal Lab Findings: 40 Laboratory Tests 03/08/17 03/09/17 03/10/17 03/11/17 23:10 05:35 05:56 05:57 Troponin I 0.150 H* 0.373 H* 0.418 H* 0.444 H - EKG/Xray Findings EKG: other - paced rythm - DDD - Exam Constitutional: Present: Elderly, Obese - alert , oriented x 1 ENT Exam: Present: hearing grossly normal, moist mucous membranes Respiratory: Present: no accessory muscle use, rales, wheezing Cardiovascular/Chest: Present: regular rate, rhythm, systolic murmur. Absent: tachycardia Abdomen: Present: Normal bowel sounds, nontender, obese Extremity: Present: normal inspection, no pedal edema Skin Exam: Present: normal color, warm/dry Eye contact: Present: cooperative, good eye contact Assessment/Plan Plan Narrative: 1. chest pressure w/ sob: Patient has gradual elevation in troponin I from 0.150-- to 0.444. This can be seen in ischemic disease/CHF. EKG shows a paced rhythm. Patient is being treated with ASA 81 mg daily, clopidogrel 75 mg daily, losartan 50 mg daily, metoprolol ER 25 mg at bedtime and rosuvastatin 20 mg daily. Patient did diurese well furosemide/spironolactone. 2. Wheezing: This could be secondary to CHF/bronchospastic airway disease. Chest x-ray on was read as negative and BNP was 4752. 3. CAD: PTCA to circumflex 1996 and stent to LAD in 1997 4. DDD: s/p PCM in 2011. 5. Dementia: gradually getting worse. 6. Other medical conditions: T2DM, HLD, HTN, s/p splenectomy, OA, anxiety reviewed and stable. 7. DVT prophylaxis: Lovenox 40 mg SQ daily. Code Status: DNR.
[2017-03-11] MEDS: SIMVASTATIN 20 MG TABLET PO SCH (20:21)
[2017-03-11] MEDS: ROSUVASTATIN CALCIUM 20 MG TABLET PO SCH (20:21)
[2017-03-11] MEDS: METOPROLOL SUCCINATE 25 MG TABLET.SA PO SCH (20:21)
[2017-03-11] MEDS: GABAPENTIN 600 MG TABLET PO SCH (20:21)
[2017-03-11] MEDS: MORPHINE SULFATE 4 MG/ML SYRG IV PRN (21:31)
[2017-03-12] MEDS: ALBUTEROL SULFATE/IPRATROPIUM 3 ML NEBU IH PRN ×2 (00:57→16:56)
[2017-03-12] MEDS: IPRATROPIUM BROMIDE 0.5 MG/2.5 ML VIAL.NEB IH SCH ×3 (06:04→18:00)
[2017-03-12] MEDS: BUDESONIDE 0.5 MG/2 ML VIAL.NEB IH SCH ×3 (06:06→18:00)
[2017-03-12] MEDS: INSULIN ASPART 100 UNITS/ML VIAL SC SCH ×3 (07:58→18:00)
[2017-03-12] MEDS: INSULIN GLARGINE,HUM.REC.ANLOG 100 UNITS/ML VIAL SC SCH ×2 (09:13→21:07)
[2017-03-12] MEDS: LOSARTAN POTASSIUM 50 MG TABLET PO SCH (09:36)
[2017-03-12] MEDS: CLOPIDOGREL BISULFATE 75 MG TABLET PO SCH (09:37)
[2017-03-12] MEDS: DOCUSATE SODIUM 100 MG CAPSULE PO SCH (09:37)
[2017-03-12] MEDS: PANTOPRAZOLE SODIUM 40 MG TABLET.EC PO SCH (09:37)
[2017-03-12] MEDS: GABAPENTIN 300 MG CAPSULE PO SCH (09:37)
[2017-03-12] MEDS: ISOSORBIDE MONONITRATE 30 MG TAB.SR.24H PO SCH (09:37)
[2017-03-12] MEDS: ACETAMINOPHEN 500 MG TABLET PO PRN (09:38)
[2017-03-12] MEDS: MORPHINE SULFATE 4 MG/ML SYRG IV PRN (09:39)
[2017-03-12] MEDS: SPIRONOLACTONE 25 MG TABLET PO SCH (16:39)
[2017-03-12] MEDS: ASPIRIN 81 MG TAB.CHEW PO SCH (16:39)
[2017-03-12] MEDS: ENOXAPARIN SODIUM 40 MG/0.4 ML SYRG SC SCH (16:39)
[2017-03-12] MEDS: METOPROLOL SUCCINATE 25 MG TABLET.SA PO SCH (23:16)
[2017-03-12] MEDS: ROSUVASTATIN CALCIUM 20 MG TABLET PO SCH (23:17)
[2017-03-12] MEDS: GABAPENTIN 600 MG TABLET PO SCH (23:18)
[2017-03-12] MEDS: SENNOSIDES/DOCUSATE SODIUM 1 TAB TABLET PO SCH (23:20)
[2017-03-13] MEDS: MORPHINE SULFATE 15 MG TABLET.SA PO SCH ×2 (04:05→13:20)
[2017-03-13 05:48] LABS: Albumin * 2.5 gm/dl (3.4-5.0); Anion Gap 9.6 mmol/L (6.8-13.8); BUN/Creatinine Ratio 17.1 (9.0-21.6); Bilirubin, Total 0.6 mg/dL (0.0-1.1); Ca. Corrected For Albumin 9.1 mg/dL (8.4-10.2); Calcium * 8.2 mg/dL (7.9-10.9); Carbon Dioxide 30.1 mmol/L (24-32.6); Potassium 3.7 mmol/L (3.4-4.6)
[2017-03-13] MEDS: IPRATROPIUM BROMIDE 0.5 MG/2.5 ML VIAL.NEB IH SCH ×2 (06:16→18:15)
[2017-03-13] MEDS: BUDESONIDE 0.5 MG/2 ML VIAL.NEB IH SCH ×2 (06:17→18:15)
[2017-03-13] MEDS: INSULIN ASPART 100 UNITS/ML VIAL SC SCH ×3 (07:33→18:40)
[2017-03-13] MEDS: DOCUSATE SODIUM 100 MG CAPSULE PO SCH (08:35)
[2017-03-13] MEDS: PANTOPRAZOLE SODIUM 40 MG TABLET.EC PO SCH (08:36)
[2017-03-13] MEDS: CLOPIDOGREL BISULFATE 75 MG TABLET PO SCH (08:36)
[2017-03-13] MEDS: GABAPENTIN 300 MG CAPSULE PO SCH (08:36)
[2017-03-13] MEDS: LOSARTAN POTASSIUM 50 MG TABLET PO SCH (10:05)
[2017-03-13] MEDS: INSULIN GLARGINE,HUM.REC.ANLOG 100 UNITS/ML VIAL SC SCH ×2 (10:05→20:59)
[2017-03-13] MEDS: ISOSORBIDE MONONITRATE 30 MG TAB.SR.24H PO SCH (10:05)
[2017-03-13] MEDS: SPIRONOLACTONE 25 MG TABLET PO SCH (13:20)
[2017-03-13] MEDS: ASPIRIN 81 MG TAB.CHEW PO SCH (13:20)
[2017-03-13] MEDS: ALBUTEROL SULFATE/IPRATROPIUM 3 ML NEBU IH PRN (14:41)
[2017-03-13] MEDS: ENOXAPARIN SODIUM 40 MG/0.4 ML SYRG SC SCH (20:57)
[2017-03-13] MEDS: METOPROLOL SUCCINATE 25 MG TABLET.SA PO SCH (20:58)
[2017-03-13] MEDS: ROSUVASTATIN CALCIUM 20 MG TABLET PO SCH (20:58)
[2017-03-13] MEDS: GABAPENTIN 600 MG TABLET PO SCH (20:58)
[2017-03-13] MEDS: SENNOSIDES/DOCUSATE SODIUM 1 TAB TABLET PO SCH (20:58)
[2017-03-14] MEDS: MORPHINE SULFATE 15 MG TABLET.SA PO SCH ×2 (02:41→12:20)
[2017-03-14] MEDS: ALBUTEROL SULFATE/IPRATROPIUM 3 ML NEBU IH PRN (02:56)
[2017-03-14] MEDS: BUDESONIDE 0.5 MG/2 ML VIAL.NEB IH SCH ×2 (06:09→18:21)
[2017-03-14] MEDS: IPRATROPIUM BROMIDE 0.5 MG/2.5 ML VIAL.NEB IH SCH ×2 (06:09→18:19)
[2017-03-14] MEDS: INSULIN ASPART 100 UNITS/ML VIAL SC SCH ×2 (07:51→14:11)
[2017-03-14] MEDS: GABAPENTIN 300 MG CAPSULE PO SCH (10:16)
[2017-03-14] MEDS: PANTOPRAZOLE SODIUM 40 MG TABLET.EC PO SCH (10:17)
[2017-03-14] MEDS: LOSARTAN POTASSIUM 50 MG TABLET PO SCH (10:17)
[2017-03-14] MEDS: ISOSORBIDE MONONITRATE 30 MG TAB.SR.24H PO SCH (10:17)
[2017-03-14] MEDS: DOCUSATE SODIUM 100 MG CAPSULE PO SCH (10:17)
[2017-03-14] MEDS: CLOPIDOGREL BISULFATE 75 MG TABLET PO SCH (10:17)
[2017-03-14] MEDS: ACETAMINOPHEN 500 MG TABLET PO PRN (10:20)
[2017-03-14] MEDS: INSULIN GLARGINE,HUM.REC.ANLOG 100 UNITS/ML VIAL SC SCH ×2 (10:29→21:22)
[2017-03-14] MEDS: SPIRONOLACTONE 25 MG TABLET PO SCH (12:20)
[2017-03-14] MEDS: ASPIRIN 81 MG TAB.CHEW PO SCH (12:20)
[2017-03-14] MEDS: ENOXAPARIN SODIUM 40 MG/0.4 ML SYRG SC SCH (17:16)
--- NOTE | 2017-03-14 19:27 | PN ---
Subjective - Date and Time Seen Date: 03/14/17 Time: 19:24 Subjective Narrative: Pt states she is without pain and comfortable. Her bottom is beginning to become a little sore, nursing is providing turns Q2H. Audible wheezes however denies difficulty breathing or shortness of breath. Objective Objective Narrative: Pt is lying in bed, alert and resting comfortably. Two daughters at bedside. She was reportedly drowsy during the day, however daughter states that she didn' t sleep well last night. Bowel regimen changed, abdomen has palpable hernia and slightly distended, although family believes this is her normal. - Review of Systems Generalized/Overall Review: Reports: No Symptoms Reported EENTM: Reports: No Symptoms Reported Respiratory: Reports: Wheezing Cardiac: Reports: No Symptoms Reported Abdominal: Reports: No Symptoms Reported Genitourinary Symptoms: Reports: No Symptoms Reported Musculoskeletal Complaints: Reports: No Symptoms Reported Neurological: Reports: No Symptoms Reported Skin: Reports: No Symptoms Reported Endocrine: Reports: No Symptoms Reported - Vitals Vitals: Last Vital Signs Temp 36.9 C 03/14/17 15:38 Pulse 77 03/14/17 18:29 Resp 20 03/14/17 18:29 BP 98/64 03/14/17 15:38 Pulse Ox 94 RA 03/14/17 18:19 - Exam Constitutional: Present: Alert, Cooperative, No distress, Other - Oriented x2, Elderly, Obese ENT Exam: Present: hearing grossly normal Respiratory: Present: chest non-tender, no respiratory distress, no accessory muscle use, decreased breath sounds, wheezing, expiration (prolonged) Cardiovascular/Chest: Present: normal peripheral pulses, regular rate, rhythm, no chest tenderness, no edema, no gallop, no JVD, systolic murmur Abdomen: Present: Normal bowel sounds, soft, nontender, no rebound tenderness, no hepatospenomegaly, no masses, distended, hernia Extremity: Present: normal range of motion, non-tender, normal inspection, no calf tenderness, normal capillary refill, claudication Skin Exam: Present: normal color, warm/dry, no cyanosis Neurologic: Present: no motor/sensory deficits, alert, normal mood/affect Appearance: Present: appropriate appearance Eye contact: Present: cooperative, normal speech Assessment/Plan Plan Narrative: Morphine adjusted from 15mg BID to 10mg at HS due to increased drowsiness. Senna 17.2mg BID added for bowel regimen. 1. Chest pressure w/ sob: Patient has gradual elevation in troponin I from 0.150-- to 0.444. Family would like to keep pt comfortable, no aggressive measures. Tele shows a paced rhythm. Continue ASA 81 mg daily, clopidogrel 75 mg daily, losartan 50 mg daily, metoprolol ER 25 mg at bedtime and rosuvastatin 20 mg daily. Morphine adjusted as above. 2. Wheezing: Secondary to CHF/bronchospastic airway disease. Continue Albuterol nebs 3. CAD: PTCA to circumflex 1996 and stent to LAD in 1997 4. DDD: s/p PCM in 2011. 5. Dementia: gradually getting worse. 6.DM2 Novolog discontinued today due to poor appetite. Lantus decreased to 20units BID 7.Other medical conditions: HLD, HTN, s/p splenectomy, OA, anxiety reviewed and stable. 8. DVT prophylaxis: Lovenox 40 mg SQ daily. Code Status: DNR. - Problems/Diagnosis (1) Elevated troponin Problem: Acute (2) CAD (coronary artery disease) Problem: Chronic (3) CAD S/P percutaneous coronary angioplasty Problem: Chronic (4) Dementia Problem: Chronic (5) Diabetes mellitus, type II Problem: Chronic Qualifiers: Diabetes mellitus complication status: with neurologic complications (6) GERD (gastroesophageal reflux disease) Problem: Chronic Qualifiers: (7) Hyperlipidemia Problem: Chronic (8) Hypertension Problem: Chronic Qualifiers:
[2017-03-14] MEDS ORDERED: MORPHINE SULFATE 15 MG TABLET.SA PO SCH ×2 (21:00)
[2017-03-14] MEDS: ROSUVASTATIN CALCIUM 20 MG TABLET PO SCH (21:22)
[2017-03-14] MEDS: GABAPENTIN 600 MG TABLET PO SCH (21:23)
[2017-03-14] MEDS: METOPROLOL SUCCINATE 25 MG TABLET.SA PO SCH (21:24)
[2017-03-14] MEDS: SENNOSIDES 8.6 MG TABLET PO SCH (21:30)
[2017-03-15 05:30] LABS: Hematocrit 41.8 % (37.0-47.0); Hemoglobin 13.4 gm/dL (12.5-16.0); Mean Cell Volume 89.3 fl (78-100); Mean Corpuscular Hemoglobin 28.6 pg (27-31); Mean Corpuscular Hgb Conc 32.1 g/dl (32-36); Mean Platelet Volume 10.3 fl (6.0-9.5); Neutrophil % 64.1 % (42-75.0); Platelet Count 283 K/mm3 (150-450); Red Blood Count 4.68 M/mm3 (4.2-5.4); Red Cell Distribution Width 15.4 % (11.5-14.0); White Blood Count 9.3 K/mm3 (4.0-10.5)
[2017-03-15 05:47] LABS: Albumin * 2.4 gm/dl (3.4-5.0); Anion Gap 8.1 mmol/L (6.8-13.8); Bilirubin, Total 0.4 mg/dL (0.0-1.1); Ca. Corrected For Albumin 9.3 mg/dL (8.4-10.2); Calcium * 8.3 mg/dL (7.9-10.9); Carbon Dioxide 31.9 mmol/L (24-32.6); Total Protein 6.9 gm/dL (6.2-8.2)
[2017-03-15] MEDS: BUDESONIDE 0.5 MG/2 ML VIAL.NEB IH SCH ×2 (06:29→18:18)
[2017-03-15] MEDS: ALBUTEROL SULFATE/IPRATROPIUM 3 ML NEBU IH PRN ×2 (06:30→18:19)
[2017-03-15] MEDS: IPRATROPIUM BROMIDE 0.5 MG/2.5 ML VIAL.NEB IH SCH ×2 (06:32→18:22)
[2017-03-15] MEDS: SENNOSIDES 8.6 MG TABLET PO SCH ×2 (09:32→20:17)
[2017-03-15] MEDS: ISOSORBIDE MONONITRATE 30 MG TAB.SR.24H PO SCH (09:33)
[2017-03-15] MEDS: GABAPENTIN 300 MG CAPSULE PO SCH (09:33)
[2017-03-15] MEDS: DOCUSATE SODIUM 100 MG CAPSULE PO SCH (09:33)
[2017-03-15] MEDS: LOSARTAN POTASSIUM 50 MG TABLET PO SCH (09:34)
[2017-03-15] MEDS: PANTOPRAZOLE SODIUM 40 MG TABLET.EC PO SCH (09:34)
[2017-03-15] MEDS: CLOPIDOGREL BISULFATE 75 MG TABLET PO SCH (09:35)
[2017-03-15] MEDS: INSULIN GLARGINE,HUM.REC.ANLOG 100 UNITS/ML VIAL SC SCH ×2 (09:35→20:20)
[2017-03-15] MEDS: SPIRONOLACTONE 25 MG TABLET PO SCH (11:48)
[2017-03-15] MEDS: ASPIRIN 81 MG TAB.CHEW PO SCH (11:48)
[2017-03-15] MEDS: MORPHINE SULFATE 10 MG/0.5 ML SYRINGE PO PRN (16:01)
[2017-03-15] MEDS: ENOXAPARIN SODIUM 40 MG/0.4 ML SYRG SC SCH (17:33)
[2017-03-15] MEDS: ROSUVASTATIN CALCIUM 20 MG TABLET PO SCH (20:17)
[2017-03-15] MEDS: METOPROLOL SUCCINATE 25 MG TABLET.SA PO SCH (20:18)
[2017-03-15] MEDS: GABAPENTIN 600 MG TABLET PO SCH (20:18)
[2017-03-16] MEDS: MORPHINE SULFATE 4 MG/ML SYRG IV PRN (03:24)
[2017-03-16] MEDS: IPRATROPIUM BROMIDE 0.5 MG/2.5 ML VIAL.NEB IH SCH ×2 (06:06→18:10)
[2017-03-16] MEDS: BUDESONIDE 0.5 MG/2 ML VIAL.NEB IH SCH ×2 (06:08→18:10)
[2017-03-16] MEDS: DOCUSATE SODIUM 100 MG CAPSULE PO SCH (09:17)
[2017-03-16] MEDS: LOSARTAN POTASSIUM 50 MG TABLET PO SCH (09:17)
[2017-03-16] MEDS: PANTOPRAZOLE SODIUM 40 MG TABLET.EC PO SCH (09:17)
[2017-03-16] MEDS: ISOSORBIDE MONONITRATE 30 MG TAB.SR.24H PO SCH (09:17)
[2017-03-16] MEDS: GABAPENTIN 300 MG CAPSULE PO SCH (09:17)
[2017-03-16] MEDS: INSULIN GLARGINE,HUM.REC.ANLOG 100 UNITS/ML VIAL SC SCH ×2 (09:17→22:27)
[2017-03-16] MEDS: SENNOSIDES 8.6 MG TABLET PO SCH ×2 (09:18→22:23)
[2017-03-16] MEDS: CLOPIDOGREL BISULFATE 75 MG TABLET PO SCH (09:18)
[2017-03-16] MEDS: ASPIRIN 81 MG TAB.CHEW PO SCH (11:57)
[2017-03-16] MEDS: SPIRONOLACTONE 25 MG TABLET PO SCH (11:57)
[2017-03-16] MEDS ORDERED: BISACODYL 5 MG TABLET.DR PO ONE (13:44)
[2017-03-16] MEDS ORDERED: BISACODYL 10 MG SUPP.RECT RC ONE (13:45)
--- NOTE | 2017-03-16 15:08 | ECHO ---
This report is available in the EMR
[2017-03-16] MEDS: ENOXAPARIN SODIUM 40 MG/0.4 ML SYRG SC SCH (17:10)
[2017-03-16] MEDS: METOPROLOL SUCCINATE 25 MG TABLET.SA PO SCH (22:24)
[2017-03-16] MEDS: GABAPENTIN 600 MG TABLET PO SCH (22:24)
[2017-03-16] MEDS: ROSUVASTATIN CALCIUM 20 MG TABLET PO SCH (22:24)
[2017-03-16] MEDS: MORPHINE SULFATE 10 MG/0.5 ML SYRINGE PO PRN (23:33)
[2017-03-17] MEDS: IPRATROPIUM BROMIDE 0.5 MG/2.5 ML VIAL.NEB IH SCH (06:15)
[2017-03-17] MEDS: BUDESONIDE 0.5 MG/2 ML VIAL.NEB IH SCH (06:16)
[2017-03-17] MEDS: LOSARTAN POTASSIUM 50 MG TABLET PO SCH (08:44)
[2017-03-17] MEDS: PANTOPRAZOLE SODIUM 40 MG TABLET.EC PO SCH (08:44)
[2017-03-17] MEDS: CLOPIDOGREL BISULFATE 75 MG TABLET PO SCH (08:44)
[2017-03-17] MEDS: GABAPENTIN 300 MG CAPSULE PO SCH (08:44)
[2017-03-17] MEDS: ISOSORBIDE MONONITRATE 30 MG TAB.SR.24H PO SCH (08:44)
[2017-03-17] MEDS: DOCUSATE SODIUM 100 MG CAPSULE PO SCH (08:44)
[2017-03-17] MEDS: SENNOSIDES 8.6 MG TABLET PO SCH (08:44)
[2017-03-17] MEDS: INSULIN GLARGINE,HUM.REC.ANLOG 100 UNITS/ML VIAL SC SCH (08:45)
[2017-03-17] MEDS: MORPHINE SULFATE 10 MG/0.5 ML SYRINGE PO PRN (09:33)
--- NOTE | 2017-03-17 11:08 | PN ---
Subjective - Date and Time Seen Date: 03/16/17 Time: 12:07 Subjective Narrative: c/o sob but no chest pain. Objective - Review of Systems Respiratory: Reports: Shortness of Breath Cardiac: Denies: Chest Pain, Edema, Palpitations Neurological: Reports: Anxiety - Vitals Vitals: Vital Signs Selected Entries 03/16/17 06:11 Temperature 36.4 C L Pulse Rate 62 Blood Pressure 140/59 O2 Sat by Pulse 93%-2L Oximetry - Exam Constitutional: Present: Elderly - alert, confused, cooperative, in no NAD, on 2 L O2 Neck: Present: normal inspection, trachea midline Respiratory: Present: no accessory muscle use, decreased breath sounds - with crackles and rales in both bases Cardiovascular/Chest: Present: regular rate, rhythm, systolic murmur - III/ at LSB. Absent: tachycardia Abdomen: Present: Normal bowel sounds, soft, nontender, obese Extremity: Present: no pedal edema Skin Exam: Present: normal color, warm/dry Assessment/Plan Plan Narrative: 1. Moderate to severe Aortic stenosis: Patient now presenting with CHF/chest pain. Discussed echo findings with POA; does not want any intervention. Patient has gradual elevation in troponin I from 0.150-- to 0.444. EKG shows a paced rhythm. Patient is being treated with losartan 50 mg daily, metoprolol ER 25 mg at bedtime, isosorbide mononitrate 15 mg PO daily. ON 2L O2 to mantain sats of 92%. Possible discharge in a.m. to NH [ 03/17/17]. 2. Wheezing: This could be secondary to CHF/bronchospastic airway disease. Chest x-ray on was read as negative and BNP was 4752. 3. CAD: PTCA to circumflex 1996 and stent to LAD in 1997 4. DDD: s/p PCM in 2011. 5. Dementia: gradually getting worse. 6. Other medical conditions: T2DM, HLD, HTN, s/p splenectomy, OA, anxiety reviewed and stable. Insulin decreased due to poor appetite. 7. DVT prophylaxis: Lovenox 40 mg SQ daily. Code Status: DNR.
[2017-03-17] MEDS ORDERED: FUROSEMIDE 10 MG/ML VIAL IV ONE (11:20)
--- NOTE | 2017-03-17 11:22 | DS ---
(1) Aortic stenosis Problem: Chronic Qualifiers: Cardiac valve disease etiology: etiology unspecified Qualified Code(s): I35.0 - Nonrheumatic aortic (valve) stenosis (2) Heart failure with preserved left ventricular function (HFpEF) Problem: Acute (3) Dementia Diagnosis(s): with anxiety Problem: Chronic Qualifiers: Dementia type: unspecified type Dementia behavioral disturbance: without behavioral disturbance Qualified Code(s): F03.90 - Unspecified dementia without behavioral disturbance (4) Diabetes mellitus, type II Diagnosis(s): neuropathy Problem: Chronic Qualifiers: Diabetes mellitus complication status: with neurologic complications Diabetes mellitus superintendent terminal insulin use: with senior care use (5) GERD (gastroesophageal reflux disease) Problem: Chronic Qualifiers: Esophagitis presence: esophagitis presence not specified Qualified Code(s) : K21.9 - Gastro-esophageal reflux disease without esophagitis (6) Hyperlipidemia Problem: Chronic Qualifiers: Hyperlipidemia type: unspecified Qualified Code(s): E78.5 - Hyperlipidemia , unspecified Description of Stay: DATE OF ADMISSION: 03/09/17. DATE OF DISCHARGE: . DIAGNOSTICS: 2-D ECHOCARDIOGRAM. DISCHARGE SUMMARY: Shobha Gutiérrez is a 87-year-old WF with a H/O HTN, CAD, s/p PCM placement, T2DM, GERD, dementia, who came in because of shortness of breath and difficulty in breathing. CXR was read as negative however BNP was 4752 pg/ml. troponin was 0.15 and gradually increased to 0.444 ng/ml. EKG initially showed a paced rhythm; patient was initially treated with 300 mg of clopidogrel and 40 mg of Crestor. An echocardiogram showed a normal EF and moderate to severe aortic stenosis. POA did not want further intervention in terms of transferring to a higher level of care or a cardiology consult. Patient was started on isosorbide mononitrate 15 mg and diuresed with mild improvement in symptoms. She was started on MS Contin 10 mg at bedtime and IRMS 5 mg as needed during the daytime with improvement in chest pain and anxiety levels. Insulin was decreased as her oral intake diminished. Patient is nonambulatory. Discussions were held with the family regarding [facility] placement/hospice care. Patient does have bronchospastic airway disease and this was treated with Pulmicort and respiratory treatments as needed. Chest x-rays done were negative. Patient was discharged in a stable condition to [facility] on . Procedures Performed: none Discharge Disposition: [facility] Disposition: [facility] Condition: Undetermined Discharge Activity: Activity as tolerated Discharge Diet: Consistent carbs, Low fat/chol, High Fiber Discharge Level of Care:: SNF - [facility] Therapy: Physicial Therapy, Occupation Therapy Referrals: Shari Kohli MD [Primary Care Provider] - Problem Oriented Discharge Instructions to Patient/Family: Chronic Obstructive Pulmonary Disease, [id number], Heart Failure, [id number] Additional Patient Instructions (free text): CMP on Tuesday03/21/17. Follow up with Dr. Kohli 03/25 at 2:30 in office. Prescriptions (Any new or edited meds): Albuterol Sulfate/Ipratropium [Duoneb 2.5-0.5MG/3ML Soln] 3 ml IH Q8H #0.1 nebu Budesonide [Pulmicort Respules] 0.5 mg IH BIDRT #7 vial.neb Furosemide [Lasix] 60 mg PO DAILY #30 tablet Insulin Glargine,Hum.rec.anlog [Lantus] 20 units SC BID #1 vial Isosorbide Mononitrate [Imdur] 15 mg PO DAILY #30 tab.sr.24h Metoprolol Succinate [Toprol Xl] 25 mg PO DAILY@2100 #0.1 tablet.sa Morphine Sulfate [Morphine Sulfate Conc. Oral Solution] 5 mg PO Q4H PRN #20 ml PRN Reason: sob Morphine Sulfate [Morphine Sulfate ER] 10 mg PO HS #30 cap.er.pel Sennosides [Senokot] 17.2 mg PO BID #120 tablet Spironolactone [Aldactone] 25 mg PO DAILY@1200 #30 tablet Complete Home Medications List: Complete Home Medication List: Acetaminophen [Tylenol] 1,000 mg PO Q6H PRN 12/24/15 Cholecalciferol (Vitamin D3) [Vitamin D3] 2,000 unit PO DAILY 12/24/15 Clopidogrel Bisulfate [Plavix] 75 mg PO DAILY 12/24/15 Escitalopram Oxalate [Lexapro] 10 mg PO DAILY 12/24/15 Gabapentin 300 mg PO QAM 12/24/15 Gabapentin [Neurontin] 600 mg PO HS 12/24/15 Losartan Potassium [Cozaar] 50 mg PO HS 12/24/15 Pravastatin Sodium [Pravachol] 40 mg PO DAILY 12/24/15 Alprazolam [Xanax] 0.25 mg PO BID PRN 09/14/16 Docusate Sodium [Doc-Q-Lace] 100 mg PO DAILY 09/14/16 Pantoprazole Sodium [Protonix] 40 mg PO DAILY 09/14/16 Saccharomyces Boulardii [Florastor] 250 mg PO BID 09/14/16 Albuterol Sulfate [Proair Hfa] 2 puff IH Q4H PRN 03/09/17 Albuterol Sulfate/Ipratropium [Duoneb 2.5-0.5MG/3ML Soln] 3 ml IH Q8H #0.1 nebu 03/17/17 Budesonide [Pulmicort Respules] 0.5 mg IH BIDRT #7 vial.neb 03/17/17 Furosemide [Lasix] 60 mg PO DAILY #30 tablet 03/17/17 Insulin Glargine,Hum.rec.anlog [Lantus] 20 units SC BID #1 vial 03/17/17 Isosorbide Mononitrate [Imdur] 15 mg PO DAILY #30 tab.sr.24h 03/17/17 Metoprolol Succinate [Toprol Xl] 25 mg PO DAILY@2100 #0.1 tablet.sa 03/17/17 Morphine Sulfate [Morphine Sulfate Conc. Oral Solution] 5 mg PO Q4H PRN #20 ml 03/17/17 Morphine Sulfate [Morphine Sulfate ER] 10 mg PO HS #30 cap.er.pel 03/17/17 Sennosides [Senokot] 17.2 mg PO BID #120 tablet 03/17/17 Spironolactone [Aldactone] 25 mg PO DAILY@1200 #30 tablet 03/17/17 Amb Orders for Discharge: Comprehensive Metabolic Panel Time Frame: 03/21/17, Location: Determined By Patient
[2017-03-17] MEDS ORDERED: FUROSEMIDE 20 MG, FUROSEMIDE 40 MG PO SCH ×4 (12:00→12:15)
[2017-03-17] MEDS: SPIRONOLACTONE 25 MG TABLET PO SCH (12:16)
[2017-03-17] MEDS: ASPIRIN 81 MG TAB.CHEW PO SCH (12:16)
[2017-03-17 12:17] VITALS: BP 121/71
--- NOTE | 2017-03-31 16:36 | PN ---
Subjective - Date and Time Seen Date: 03/12/17 Subjective Narrative: has occassional sob and chest pain , anxious , nonambulatory. Objective - Review of Systems Cardiac: Reports: Chest Pain - ansd intermittent sob. Abdominal: Denies: Nausea, Vomiting - Sana he Musculoskeletal Complaints: Reports: Back Pain - Vitals Vitals: Vital signs 03/12/17 07:03 Temperature 38.2 C H Pulse Rate 89 Respiratory 20 Rate Blood Pressure 153/84 O2 Sat by Pulse 93% RA Oximetry - Exam Constitutional: Present: Alert, Oriented x3, Cooperative - alert and not oriented, Elderly, Obese Neck: Present: normal inspection, trachea midline Respiratory: Present: decreased breath sounds - bilaterally, wheezing and crackles in both lung yee Cardiovascular/Chest: Present: regular rate, rhythm, systolic murmur - III/ at left sternal border. Absent: tachycardia Abdomen: Present: Normal bowel sounds, soft, nontender, obese Skin Exam: Present: normal color, warm/dry Assessment/Plan Plan Narrative: 1. Moderate to severe Aortic stenosis: Patient now presenting with CHF/chest pain. Discussed echo findings with POA; does not want any intervention. Patient has gradual elevation in troponin I from 0.150-- to 0.444. EKG shows a paced rhythm. Patient is being treated with losartan 50 mg daily, metoprolol ER 25 mg at bedtime and rosuvastatin 20 mg daily. 2. Wheezing: This could be secondary to CHF/bronchospastic airway disease. Chest x-ray on was read as negative and BNP was 4752. 3. CAD: PTCA to circumflex 1996 and stent to LAD in 1997 4. DDD: s/p PCM in 2011. 5. Dementia: gradually getting worse. 6. Other medical conditions: T2DM, HLD, HTN, s/p splenectomy, OA, anxiety reviewed and stable. 7. DVT prophylaxis: Lovenox 40 mg SQ daily. Code Status: DNR. - Problems/Diagnosis (1) Aortic stenosis Problem: Acute (2) Dementia Problem: Chronic Qualifiers: Dementia type: unspecified type Dementia behavioral disturbance: without behavioral disturbance Qualified Code(s): F03.90 - Unspecified dementia without behavioral disturbance (3) Diabetes mellitus, type II Problem: Chronic Qualifiers: Diabetes mellitus complication status: with neurologic complications Diabetes mellitus detention insulin use: with long term care phlebotomist use
--- NOTE | 2017-03-31 17:35 | PN ---
Subjective - Date and Time Seen Date: 03/13/17 Time: 11:00 Subjective Narrative: has occassional sob and chest pain, sleeping better with morphine sulphate. Nonambulatory. Family would like her to be kept comfortable. Objective - Review of Systems Cardiac: Reports: Chest Pain - with shortness of breath at rest. Neurological: Reports: Other - Memory deficits present and anxiety - Vitals Vitals: Vital Sign 03/13/17 07:05 Temperature 37.2 C Pulse Rate 72 Resp. Rate 20 Blood Pressure 113/48 O2 Sat by P.O 97% 4L - Abnormal Lab Findings Abnormal Lab Findings: Laboratory Tests 03/13/17 05:27 Plasma Sodium 133 Potassium 3.7 Chloride 96 L Carbon Dioxide 30.1 BUN 33 H D Creatinine 1.93 H D Est GFR (Non-Af Amer) 26 L D Random Glucose 167 H D Calcium Adj for Albumin 9.1 Total Bilirubin 0.6 AST 29 ALT 18 L Alkaline Phosphatase 86 - Exam Constitutional: Present: Elderly - alert, confused, cooperative , pleasant on O2 at 4L ENT Exam: Present: pharynx normal, TMs normal Respiratory: Present: decreased breath sounds - with crackles bilaterally throughout lung yee. Cardiovascular/Chest: Present: regular rate, rhythm, systolic murmur - III/ at LSB. Absent: tachycardia Abdomen: Present: Normal bowel sounds, soft, nontender, nondistended, obese Extremity: Present: lower extremity edema - trace Assessment/Plan Plan Narrative: 1. Moderate to severe Aortic stenosis: Patient now presenting with CHF/chest pain. Discussed echo findings with POA; does not want any intervention. Patient has gradual elevation in troponin I from 0.150-- to 0.444. EKG shows a paced rhythm. Patient is being treated with losartan 50 mg daily, metoprolol ER 25 mg at bedtime, isosorbide mononitrate 15 mg PO daily. Discussing with family regarding assisted placement and possible hospice. Decrease O2 to maintain sats of 92%. 2. Wheezing: This could be secondary to CHF/bronchospastic airway disease. Chest x-ray on was read as negative and BNP was 4752. 3. CAD: PTCA to circumflex 1996 and stent to LAD in 1997 4. DDD: s/p PCM in 2011. 5. Dementia: gradually getting worse. 6. Other medical conditions: T2DM, HLD, HTN, s/p splenectomy, OA, anxiety reviewed and stable. Insulin decreased due to poor appetite. 7. DVT prophylaxis: Lovenox 40 mg SQ daily. Code Status: DNR. - Problems/Diagnosis (1) Aortic stenosis Problem: Chronic (2) Dementia Problem: Chronic Qualifiers: Dementia type: unspecified type Dementia behavioral disturbance: without behavioral disturbance Qualified Code(s): F03.90 - Unspecified dementia without behavioral disturbance (3) Diabetes mellitus, type II Problem: Chronic Qualifiers: Diabetes mellitus complication status: with neurologic complications Diabetes mellitus snf insulin use: with snf use
--- NOTE | 2017-03-31 17:46 | PN ---
Subjective - Date and Time Seen Date: 03/15/17 Time: 11:00 Subjective Narrative: has more anxiety, now getting MS Contin 10 mg at bedtime and morphine sulfate 5 mg as needed through the day. Denies any chest pain less wheezing. No BM for the last few days Objective - Review of Systems Respiratory: Reports: Shortness of Breath Cardiac: Denies: Chest Pain Abdominal: Reports: Constipation Neurological: Reports: Other - confused with anxiety. - Vitals Vitals: Vital Signs 03/15/17 06:19 Temperature 37.2 C Pulse Rate 63 Resp. rate. 20 Blood Pressure 114/49 O2 Sat by P.O 94% 1.5 L - Abnormal Lab Findings Abnormal Lab Findings: Laboratory Tests 03/15/17 05:15 WBC 9.3 Hgb 13.4 Hct 41.8 Plt Count 283 03/15/17 05:15 Plasma Sodium 135 Potassium 4.0 Chloride 98 Carbon Dioxide 31.9 Anion Gap 8.1 BUN 28 H Creatinine 1.22 BUN/Creatinine Ratio 23.0 H Random Glucose 148 H Calcium Adj for Albumin 9.3 Total Bilirubin 0.4 AST 35 ALT 25 Alkaline Phosphatase 76 - Exam Constitutional: Present: Elderly - sleepy, wakes up when spoken to, confused, in NAD. Neck: Present: normal inspection, trachea midline Respiratory: Present: no accessory muscle use, decreased breath sounds, crackles , rales Cardiovascular/Chest: Present: regular rate, rhythm, systolic murmur. Absent: tachycardia Abdomen: Present: Normal bowel sounds, soft, nontender, obese Extremity: Present: no pedal edema - Is Skin Exam: Present: normal color, pallor Eye contact: Present: good eye contact, normal speech Assessment/Plan Plan Narrative: 1. Moderate to severe Aortic stenosis: Patient now presenting with CHF/chest pain. Discussed echo findings with POA; does not want any intervention. Patient has gradual elevation in troponin I from 0.150-- to 0.444. EKG shows a paced rhythm. Patient is being treated with losartan 50 mg daily, metoprolol ER 25 mg at bedtime, isosorbide mononitrate 15 mg PO daily. Discussing with family regarding [facility] placement and possible hospice. Decrease O2 to maintain sats of 92%. 2. Wheezing: This could be secondary to CHF/bronchospastic airway disease. Chest x-ray on was read as negative and BNP was 4752. 3. CAD: PTCA to circumflex 1996 and stent to LAD in 1997 4. DDD: s/p PCM in 2011. 5. Dementia: gradually getting worse. 6. Other medical conditions: T2DM, HLD, HTN, s/p splenectomy, OA, anxiety reviewed and stable. Insulin decreased due to poor appetite. 7. DVT prophylaxis: Lovenox 40 mg SQ daily. Code Status: DNR. - Problems/Diagnosis (1) CHF (congestive heart failure) Problem: Acute Qualifiers: Congestive heart failure type: diastolic Congestive heart failure chronicity: acute on chronic Qualified Code(s): I50.33 - Acute on chronic diastolic (congestive) heart failure (2) Aortic stenosis Problem: Chronic (3) Dementia Problem: Chronic Qualifiers: Dementia type: unspecified type Dementia behavioral disturbance: without behavioral disturbance Qualified Code(s): F03.90 - Unspecified dementia without behavioral disturbance Narrative: with anxiety
== END 2017-03-17 13:10 | DRG 293 ==
LOC: ER 22:52 → MS 03-09 00:32
PROVIDERS: ADMIT Nurse Practitioner; ATTEND Internal Medicine
PROC: B246ZZZ Ultrasonography of Right and Left Heart (ICD-10-PCS; principal; 2017-03-12)
DX: I50.31 Acute diastolic (congestive) heart failure (principal); R74.8 Abnormal levels of other serum enzymes; J44.9 Chronic obstructive pulmonary disease, unspecified; E11.40 Type 2 diabetes mellitus with diabetic neuropathy, unspecified; I10 Essential (primary) hypertension; E78.5 Hyperlipidemia, unspecified; I35.0 Nonrheumatic aortic (valve) stenosis; I25.10 Atherosclerotic heart disease of native coronary artery without angina pectoris; K21.9 Gastro-esophageal reflux disease without esophagitis; F03.90 Unspecified dementia, unspecified severity, without behavioral disturbance, psychotic disturbance, mood disturbance, and anxiety; I25.2 Old myocardial infarction; Z87.01 Personal history of pneumonia (recurrent); Z95.5 Presence of coronary angioplasty implant and graft; Z95.0 Presence of cardiac pacemaker; Z79.4 Long term (current) use of insulin
CPT/HCPCS: 36415; 71010; 80048; 80053; 83880; 84484; 85007; 85025; 85610; 85730; 87081; 93005; 93306; 94640; 96374; 96375; 99285; J2405; 71045; 83519